=== PATIENT | female | born 1930 | race Caucasian/White ===

== ENCOUNTER → 2016-09-26 | Outpatient (CLI) | payer OTHER, BC ==
[~2016-09-26] MED LIST: ACET325T96 PO; AGG PO; ALBU1NEB10 INH; AMIO200T7 PO; DOCU-94 PO; LEVO1TAB35 PO; METH-589 PO; MIRT1TAB27 PO; NUTR-977 PO; POTA10TA32 PO; POTA20SO2 PO; RMRS/15 PO; SENN8.6T9 PO; SRQ25 PO; [UNRECOGNIZED DRUG - CODE] PO; [UNRECOGNIZED DRUG - CODE] PO
== END ==
LOC: C.LABFOXAC 08:12
PROVIDERS: ATTEND Internal Medicine
DX: E05.90 Thyrotoxicosis, unspecified without thyrotoxic crisis or storm (principal)

== ENCOUNTER → 2016-10-25 | Outpatient (CLI) | payer OTHER, BC ==
[2016-10-25 08:53] LABS: BASO % 0.4 %; BASO ABS # 0.03 K/uL (0-0.2); COMPLETE YES; EOS % 2.9 %; HEMATOCRIT 38.2 % (37-47); IG% 0.4 %; LYMPH % 42.2 %; MEAN CELL VOLUME 98.7 fL (80-100); MEAN CORPUSCULAR HEMOGLOBIN 31.5 pg (25-34); MEAN CORPUSCULAR HGB CONC 31.9 g/dl (32-36); MEAN PLATELET VOLUME 10.1 fL (7.4-10.4); MONO % 8.7 %; NEUT % 45.4 %; PLATELET COUNT 227 K/uL (130-400); RED BLOOD COUNT 3.87 M/uL (4.2-5.4); WHITE BLOOD COUNT 8.06 K/uL (4.8-10.8)
== END ==
LOC: C.LABFOXAC 08:38
PROVIDERS: ATTEND Internal Medicine
DX: Z51.81 Encounter for therapeutic drug level monitoring (principal)

== ENCOUNTER → 2016-11-29 | Outpatient (CLI) | payer OTHER, BC ==
[~2016-11-29] MED LIST changes: +CRD200 PO; +LVNIS40 SQ; +MRLP17 PO; +RXC5 PO
[2016-11-29 09:24] LABS: BASO % 0.3 %; BASO ABS # 0.02 K/uL (0-0.2); COMPLETE YES; EOS % 3.8 %; HEMATOCRIT 41.5 % (37-47); IG% 0.3 %; LYMPH % 34.6 %; LYMPH ABS # 2.36 K/uL (1.2-3.4); MEAN CELL VOLUME 96.1 fL (80-100); MEAN CORPUSCULAR HEMOGLOBIN 31.7 pg (25-34); MEAN PLATELET VOLUME 10.7 fL (7.4-10.4); MONO % 9.4 %; NEUT % 51.6 %; PLATELET COUNT 197 K/uL (130-400); RED BLOOD COUNT 4.32 M/uL (4.2-5.4); WHITE BLOOD COUNT 6.82 K/uL (4.8-10.8)
[2016-11-29 09:45] LABS: THYROID STIMULATING HORMONE 0.024 uIu/ml (0.300-4.500)
== END | disposition home or self-care (01) ==
LOC: C.LABFOXAC 09:09
PROVIDERS: ATTEND Internal Medicine
DX: Z51.81 Encounter for therapeutic drug level monitoring (principal); E03.9 Hypothyroidism, unspecified

== ENCOUNTER → 2016-12-26 | Outpatient (CLI) | payer OTHER, BC ==
[2016-12-26 08:24] LABS: BASO % 0.3 %; BASO ABS # 0.02 K/uL (0-0.2); COMPLETE YES; EOS % 3.8 %; IG% 0.4 %; LYMPH % 42.7 %; LYMPH ABS # 3.28 K/uL (1.2-3.4); MEAN CELL VOLUME 98.5 fL (80-100); MEAN CORPUSCULAR HEMOGLOBIN 30.3 pg (25-34); MEAN CORPUSCULAR HGB CONC 30.8 g/dl (32-36); MEAN PLATELET VOLUME 9.9 fL (7.4-10.4); MONO % 8.1 %; NEUT % 44.7 %; PLATELET COUNT 246 K/uL (130-400); RED BLOOD COUNT 3.96 M/uL (4.2-5.4); WHITE BLOOD COUNT 7.69 K/uL (4.8-10.8)
== END | disposition home or self-care (01) ==
LOC: C.LABFOXAC 07:56
PROVIDERS: ATTEND Internal Medicine
DX: Z51.81 Encounter for therapeutic drug level monitoring (principal)

== ENCOUNTER → 2017-01-09 | Outpatient (CLI) | payer OTHER, BC ==
[2017-01-09 10:12] LABS: ESTIMATED AVERAGE GLUCOSE 126 mg/dl; HA1C FLAG Normal (Normal)
== END | disposition home or self-care (01) ==
LOC: C.LABFOXAC 08:19
PROVIDERS: ATTEND Internal Medicine
DX: E11.9 Type 2 diabetes mellitus without complications (principal)

== ENCOUNTER → 2017-02-28 | Outpatient (CLI) | payer OTHER, BC ==
[~2017-02-28] MED LIST changes: -CRD200 PO; -LVNIS40 SQ; -MRLP17 PO; -RXC5 PO
[2017-02-28 09:29] LABS: T3 TOTAL 0.72 ng/ml (0.60-1.81)
[2017-02-28 09:31] LABS: THYROID STIMULATING HORMONE 1.05 uIu/ml (0.300-4.500)
--- NOTE | 2017-03-08 07:50 | CODING QUERY NO DIAGNOSIS ---
TREATMENT RENDERED WITHOUT A DIAGNOSIS 29 To promote full compliance with coding requirements relating to patient care, physician participation is requested in all cases of manager ambulatory uncertainty. Please assist us with providing a diagnosis/symptom for the test(s) below: A diagnosis/symptom was not documented on your Order. A valid diagnosis/symptom is required to bill all insurances. Please remember that we are unable to code a diagnosis of rule out, probable, possible, questionable, or suspected. DOS 02/28/17 Tests that require a diagnosis: * T3 DIAGNOSIS: * T4 DIAGNOSIS: * TSH DIAGNOSIS: * T3 & T4 FREE DIAGNOSIS: Provider Signature: Date: Thank you Angela Fernandez [facility] Information Management Once completed, please kindly fax back to [phone] For questions please call [phone]
== END ==
LOC: C.LABFOXAC 08:29
PROVIDERS: ATTEND Internal Medicine
DX: E03.9 Hypothyroidism, unspecified (principal)

== ENCOUNTER 2017-05-07 17:44 | Emergency (ER) | payer OTHER, BC ==
[~2017-05-07] VITALS: Ht 160 cm; Wt 77.7 kg
[~2017-05-07 17:44] MED LIST changes: -LEVO1TAB35 PO; -MIRT1TAB27 PO; -POTA20SO2 PO; -SRQ25 PO
[2017-05-07 18:06] VITALS: TEMP 37; Ht 160 cm; Wt 77.7 kg
[2017-05-07] MEDS ORDERED: POTA20SO2 PO (18:08)
[2017-05-07] MEDS ORDERED: SRQ25 PO (18:08)
[2017-05-07] MEDS ORDERED: MIRT1TAB27 PO (18:08)
[2017-05-07 18:50] LABS: BASO % 0.4 %; BASO ABS # 0.03 K/uL (0-0.2); COMPLETE YES; HEMATOCRIT 42.5 % (37-47); IG% 0.4 %; LYMPH % 35.5 %; LYMPH ABS # 2.64 K/uL (1.2-3.4); MEAN CELL VOLUME 99.3 fL (80-100); MEAN CORPUSCULAR HEMOGLOBIN 32.9 pg (25-34); MEAN CORPUSCULAR HGB CONC 33.2 g/dl (32-36); MEAN PLATELET VOLUME 9.4 fL (7.4-10.4); MONO % 7.4 %; NEUT % 53.3 %; PLATELET COUNT 235 K/uL (130-400); RED BLOOD COUNT 4.28 M/uL (4.2-5.4); WHITE BLOOD COUNT 7.43 K/uL (4.8-10.8)
[2017-05-07 18:58] LABS: PROTHROMBIN TIME (PATIENT) 10.4 SECONDS (9.0-12.0)
[2017-05-07 19:08] LABS: ALT/SGPT 15 U/L (12-78); BLOOD UREA NITROGEN 13 mg/dl (7-18); BUN/CREATININE RATIO 16.3 (10-20); CARBON DIOXIDE 31 mmol/L (21-32); CHLORIDE 106 mmol/L (98-107); CREATININE 0.82 mg/dl (0.60-1.20); GLUCOSE 93 mg/dl (70-99); POTASSIUM 4.1 mmol/L (3.5-5.1); SODIUM 141 mmol/L (136-145)
--- NOTE | 2017-05-07 19:10 | DIAGNOSTIC IMAGING REPORT ---
CHEST ONE VIEW PORTABLE CLINICAL HISTORY: Altered mental status. COMPARISON STUDY: Chest radiograph August 10, 2016. FINDINGS: No pneumothorax or pleural effusion is present. Apparent hazy left basilar opacity is probably artifactual. Mild right lower lung opacity likely reflects atelectasis. No findings are noted to suggest pulmonary edema. Mild interstitial thickening is unchanged. IMPRESSION: 1. No acute cardiopulmonary findings. 2. Hazy left basilar opacity. While indeterminate, this is likely artifactual. Electronically signed by: Jaiden Teixeira M.D. 05/07/2017 7:08 PM Dictated Date/Time: 05/07/2017 7:02 PM
[2017-05-07 19:13] LABS: ALKALINE PHOSPHATASE 98 U/L (45-117); AST/SGOT 13 U/L (15-37)
--- NOTE | 2017-05-07 19:16 | DIAGNOSTIC IMAGING REPORT ---
HEAD CT NONCONTRAST CT DOSE: 1228.53 mGy.cm HISTORY: Altered mental status. TECHNIQUE: Multiaxial CT images of the head were performed without the use of intravenous contrast. Automated exposure control was utilized for this study. A dose lowering technique was utilized adhering to the principles of ALARA. Comparison: Head CT 08/10/2016. Findings: The paranasal sinuses and mastoid air cells are clear. The calvarium and skull base are intact. There is no mass, hematoma, midline shift, acute infarct. White matter hypodensity is nonspecific but suggestive of microvascular ischemic change. The ventricles and sulci demonstrate mild age-related involutional changes. Impression: No significant change compared to the prior study. No acute intracranial abnormality. Electronically signed by: Shekhar Olson M.D. 05/07/2017 7:15 PM Dictated Date/Time: 05/07/2017 7:08 PM
[2017-05-07 19:20] LABS: URINE APPEARANCE CLOUDY (CLEAR); URINE BILIRUBIN NEG (NEG); URINE COLOR YELLOW; URINE EPITHELIAL CELL AUTO >30 /lpf (0-5); URINE NITRITE NEG (NEG); URINE PH 6.5 (4.5-7.5); URINE SPECIFIC GRAVITY 1.006 (1.000-1.030); UROBILINOGEN NEG (NEG); ZZURINE CULT IF INDIC CATH YES
[2017-05-07 19:28] LABS: MANUAL MICROSCOPIC REQUIRED? NO; REVIEW REQ? YES
[2017-05-07] MEDS ORDERED: LEVO1TAB35 PO (19:55)
[2017-05-07] MEDS ORDERED: LEVOFLOXACIN 250 MG TAB PO ONE ×2 (20:00→21:45)
[2017-05-07] MEDS ORDERED: LEVAQUIN 750MG / 150ML D5W IV STA (20:32)
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
[2017-05-07 22:09] VITALS: O2SAT 91
[2017-05-07 22:31] VITALS: BP 111/63
[2017-05-07 22:39] VITALS: PULSE 54
--- NOTE | 2017-05-09 13:00 | Pharmacy Progress Note ---
ED Pharmacist Culture FollowUp Date of Service: May 09, 2017. Patient was sent back to skilled nursing with a prescription for levofloxacin 750mg q 48 hours (10 days total), which should cover the E. Coli growing from the patient's urine culture.
== END 2017-05-07 22:55 | disposition home or self-care (01) ==
LOC: EDBD 17:44 → C.EDA 17:46
DX: N30.01 Acute cystitis with hematuria (principal); R55 Syncope and collapse

== ENCOUNTER → 2017-06-10 | Outpatient (CLI) | payer OTHER, BC ==
[~2017-06-10] MED LIST changes: +LEVO1TAB35 PO; +MIRT1TAB27 PO; -POTA10TA32 PO; +POTA20SO2 PO; -RMRS/15 PO; +SRQ25 PO
[2017-06-10 08:14] LABS: BASO % 0.4 %; BASO ABS # 0.03 K/uL (0-0.2); COMPLETE YES; EOS % 3.3 %; HEMATOCRIT 38.6 % (37-47); IG% 0.4 %; LYMPH % 39.8 %; LYMPH ABS # 2.89 K/uL (1.2-3.4); MEAN CELL VOLUME 100.3 fL (80-100); MEAN CORPUSCULAR HEMOGLOBIN 32.5 pg (25-34); MEAN CORPUSCULAR HGB CONC 32.4 g/dl (32-36); MEAN PLATELET VOLUME 9.9 fL (7.4-10.4); NEUT % 48.1 %; PLATELET COUNT 213 K/uL (130-400); RED BLOOD COUNT 3.85 M/uL (4.2-5.4); WHITE BLOOD COUNT 7.26 K/uL (4.8-10.8)
== END | disposition home or self-care (01) ==
LOC: C.LABFOXAC 07:50
PROVIDERS: ATTEND Internal Medicine
DX: E11.9 Type 2 diabetes mellitus without complications (principal); I47.1 Supraventricular tachycardia

== ENCOUNTER 2017-06-30 22:50 | Inpatient (IN) | payer OTHER, BC ==
[2017-06-30] MEDS ORDERED: HYDROmorphone INJ 0.5 MG/0.5 ML SYR IV PRN (23:00)
[2017-06-30 23:31] LABS: BASO % 0.2 %; BASO ABS # 0.02 K/uL (0-0.2); COMPLETE YES; IG% 0.4 %; LYMPH % 22.6 %; LYMPH ABS # 2.54 K/uL (1.2-3.4); MEAN CELL VOLUME 101.9 fL (80-100); MEAN CORPUSCULAR HEMOGLOBIN 31.7 pg (25-34); MEAN CORPUSCULAR HGB CONC 31.1 g/dl (32-36); MEAN PLATELET VOLUME 9.6 fL (7.4-10.4); MONO % 6.8 %; PLATELET COUNT 237 K/uL (130-400); RED BLOOD COUNT 4.32 M/uL (4.2-5.4); WHITE BLOOD COUNT 11.23 K/uL (4.8-10.8)
[2017-06-30 23:42] LABS: PROTHROMBIN TIME (PATIENT) 10.8 SECONDS (9.0-12.0)
[2017-06-30 23:47] LABS: BLOOD UREA NITROGEN 16 mg/dl (7-18); BUN/CREATININE RATIO 15.7 (10-20); CARBON DIOXIDE 31 mmol/L (21-32); CHLORIDE 104 mmol/L (98-107); CREATININE 1.05 mg/dl (0.60-1.20); GLUCOSE 139 mg/dl (70-99); POTASSIUM 4.1 mmol/L (3.5-5.1); SODIUM 143 mmol/L (136-145)
[2017-07-01] VITALS (8 sets, daily range): BP systolic 102–144; BP diastolic 63–78; PULSE 58–108; TEMP 36.2–37.3; O2SAT 92–99
--- NOTE | 2017-07-01 00:23 | History and Physical ---
History & Physical Date & Time of Service: Jul 01, 2017 at 00:23 Chief Complaint: Fall, Femur Fx Primary Care Physician: Lester Lemos History of Present Illness Source: patient, hospital records, skilled nursing The patient is an 87-year-old female resident of [facility], who presents to the emergency department after a sudden fall onto her left leg, with development of acute left leg pain prior to arrival. The patient denies hitting her head, but her history of present illness is limited secondary to dementia Past Medical/Surgical History Medical Problems: (1) Ambulatory dysfunction Status: Chronic (2) Hypercholesteremia Status: Chronic Family History Noncontributory secondary to age Social History Smoking Status: Never Smoker Smokeless Tobacco Use: No Alcohol Use: none Drug Use: none Marital Status: Housing status: skilled nursing Occupational Status: retired Immunizations History of Influenza Vaccine: Unknown History of Tetanus Vaccine?: Unknown History of Pneumococcal: Unknown History of Hepatitis B Vaccine: Unknown Multi-Drug Resistant Organisms History of MDRO: No Allergies Coded Allergies: Amoxicillin (Unverified Allergy, Unknown, ., 07/01/17) Clavulanic Acid (Unverified Allergy, Unknown, ., 07/01/17) Home Medications Scheduled Amiodarone Hcl (Pacerone), 100 MG PO QAM Cholecalciferol (Just D), 5 ML PO QAM Dipyridamole/Aspirin (Aggrenox 25-200 mg), 1 CAP PO Q12 Docusate Sodium (Colace), 100 MG PO QAM Methimazole (Methimazole ), 5 MG PO BID Mirtazapine (Mirtazapine), 7.5 MG PO HS Potassium Chloride (Potassium Chloride), 15 ML PO QAM Sennosides (Senexon), 8.6 MG PO BID Sertraline Hcl (Sertraline Hcl), 3.75 ML PO DAILY Scheduled PRN Albuterol Sulf (Albuterol Sulfate 0.083% For Inh), 3 ML INH Q4 PRN for SOB/ Wheezing Review of Systems Her review of systems is limited secondary to dementia and is as noted above. Physical Exam Vital Signs Date Time Temp Pulse Resp B/P (MAP) Pulse Ox O2 Delivery O2 Flow Rate FiO2 07/01/17 00:16 55 07/01/17 00:16 55 06/30/17 23:07 36.7 58 17 135/75 90 Room Air The patient is awake, well-developed and adequately nourished, alert but disoriented, normocephalic and atraumatic, lying in bed and in no acute distress while lying still. HEENT--PERRL, EOMI, mucous membranes and oropharynx dry. Neck--supple, no JVD or bruits, thyroid normal, trachea midline, no adenopathy. Heart--normal S1 and S2, no extra beats, no murmurs, rubs or gallops. Lungs--clear bilaterally with good air movement, no respiratory distress, no accessory muscle use. Abdomen--normal bowel sounds and soft, nontender and nondistended, no hernias or masses, no organomegaly. Extremities--no cyanosis, clubbing or edema. There are good distal pulses b/l. Dermatologic--normal skin turgor, normal color, warm and dry, no abnormal lymph nodes, no rash. Neurologic--cranial nerves II through XII grossly intact. Rheumatologic--disfigurement and discomfort over mid left femoral shaft area Psychiatric--normal affect. Diagnostics Laboratory Results Results Past 24 Hours Test 06/30/17 22:55 06/30/17 23:21 Range/Units White Blood Count 11.23 4.8-10.8 K/uL Red Blood Count 4.32 4.2-5.4 M/uL Hemoglobin 13.7 12.0-16.0 g/dL Hematocrit 44.0 37-47 % Mean Corpuscular Volume 101.9 80-100 fL Mean Corpuscular Hemoglobin 31.7 25-34 pg Mean Corpuscular Hemoglobin Concent 31.1 32-36 g/dl Platelet Count 237 130-400 K/uL Mean Platelet Volume 9.6 7.4-10.4 fL Neutrophils (%) (Auto) 68.0 % Lymphocytes (%) (Auto) 22.6 % Monocytes (%) (Auto) 6.8 % Eosinophils (%) (Auto) 2.0 % Basophils (%) (Auto) 0.2 % Neutrophils # (Auto) 7.64 1.4-6.5 K/uL Lymphocytes # (Auto) 2.54 1.2-3.4 K/uL Monocytes # (Auto) 0.76 0.11-0.59 K/uL Eosinophils # (Auto) 0.23 0-0.5 K/uL Basophils # (Auto) 0.02 0-0.2 K/uL RDW Standard Deviation 52.1 36.4-46.3 fL RDW Coefficient of Variation 13.8 11.5-14.5 % Immature Granulocyte % (Auto) 0.4 % Immature Granulocyte # (Auto) 0.04 0.00-0.02 K/uL Prothrombin Time 10.8 9.0-12.0 SECONDS Prothromb Time International Ratio 1.0 0.9-1.1 Activated Partial Thromboplast Time 25.2 21.0-31.0 SECONDS Partial Thromboplastin Ratio 1.0 Sodium Level 143 136-145 mmol/L Potassium Level 4.1 3.5-5.1 mmol/L Chloride Level 104 98-107 mmol/L Carbon Dioxide Level 31 21-32 mmol/L Anion Gap 8.0 3-11 mmol/L Blood Urea Nitrogen 16 7-18 mg/dl Creatinine 1.05 0.60-1.20 mg/dl Estimated GFR () 54.9 Estimated GFR (Non- 47.4 BUN/Creatinine Ratio 15.7 10-20 Random Glucose 139 70-99 mg/dl Calcium Level 9.0 8.5-10.1 mg/dl EKG EKG shows sinus bradycardia at 55 bpm, first-degree heart block, no significant change compared to April 2017 Impression Assessment and Plan Left femoral shaft closed fracture-- The patient will be admitted to the medical surgical floor. Nothing by mouth except essential medications after midnight for possible surgery. Morphine sulfate 2-4 mg IV every 2 hours when necessary moderate to severe pain. Consults orthopedics. Cardiac dysrhythmia-- Continue amiodarone 100 mg by mouth every morning. Hold Aggrenox and potassium chloride. Hyperthyroidism-- Continue methimazole 5 mg by mouth twice a day. Depression and insomnia-- Hold mirtazapine and sertraline. Level of Care Med/Surg Resuscitation Status FULL RESUSCITATION VTE Prophylaxis VTE Risk Assessment Done? Y/N: Yes Risk Level: High Given or contraindicated: SCD's Social Service Consult Lives in [place]
[2017-07-01] MEDS ORDERED: ONDANSETRON INJ 2 MG/ML 2 ML VIAL IV PRN (00:30)
[2017-07-01] MEDS ORDERED: ACETAMINOPHEN IV 100 ML IV PRN (00:30)
[2017-07-01] MEDS ORDERED: FAMOTIDINE IV INJ 20 MG in DEXTROSE 5% 100ML 100 ML IV SCH (00:30)
[2017-07-01] MEDS ORDERED: MoRPHine SULFATE 2 MG/ML CARP IV PRN (00:30)
[2017-07-01] MEDS ORDERED: ACETAMINOPHEN 325 MG TAB PO PRN (00:30)
--- NOTE | 2017-07-01 01:13 | EMERGENCY ROOM VISIT NOTE ---
History Report prepared by Ember: Shaheed Schultz Under the Supervision of: Dr. Srinath Mckeon D.O. First contact with patient: 22:52 Stated Complaint: FALL, FEMUR FX History of Present Illness The patient is an 87 year old female who presents to the Emergency Room with complaints of a sudden fall occurring prior to arrival. Per the EMS, the patient fell on her left leg, and she is having left leg pain. The patient states that she did not hit her head. The history is limited secondary to dementia. Source of History: patient, EMS History Limited By: dementia Onset: prior to arrival Position: other (global) Quality: other (fall) Timing: other (sudden) Note: Associated symptoms: Left leg pain Review of Systems HPI is limited secondary to dementia Past Medical & Surgical Medical Problems: (1) Ambulatory dysfunction (2) Closed left femoral fracture (3) Hypercholesteremia Family History Noncontributory secondary to age Social History Smoking Status: Unknown if Ever Smoked Marital Status: Housing Status: [facility] Occupation Status: retired Current/Historical Medications Scheduled Amiodarone Hcl (Pacerone), 100 MG PO QAM Cholecalciferol (Just D), 5 ML PO QAM Dipyridamole/Aspirin (Aggrenox 25-200 mg), 1 CAP PO Q12 Docusate Sodium (Colace), 100 MG PO QAM Methimazole (Methimazole ), 5 MG PO BID Mirtazapine (Mirtazapine), 7.5 MG PO HS Potassium Chloride (Potassium Chloride), 15 ML PO QAM Sennosides (Senexon), 8.6 MG PO BID Sertraline Hcl (Sertraline Hcl), 3.75 ML PO DAILY Scheduled PRN Albuterol Sulf (Albuterol Sulfate 0.083% For Inh), 3 ML INH Q4 PRN for SOB/ Wheezing Allergies Coded Allergies: Amoxicillin (Unverified Allergy, Unknown, ., 07/01/17) Clavulanic Acid (Unverified Allergy, Unknown, ., 07/01/17) Physical Exam Vital Signs Date Time Temp Pulse Resp B/P (MAP) Pulse Ox O2 Delivery O2 Flow Rate FiO2 07/01/17 00:16 55 07/01/17 00:16 55 06/30/17 23:07 36.7 58 17 135/75 90 Room Air Physical Exam CONSTITUTIONAL/VITAL SIGNS: Reviewed / noted above. GENERAL: Non-toxic in appearance. INTEGUMENTARY: Warm, dry, and [place]. HEAD: Normocephalic. EYES: without scleral icterus or trauma. ENT/OROPHARYNX: clear and moist. LYMPHADENOPATHY/NECK: Is supple without lymphadenopathy or meningismus. RESPIRATORY: Lungs clear and equal. CARDIOVASCULAR: Regular rate and rhythm. GI/ABDOMEN: Soft and nontender. No organomegaly or pulsatile mass. No rebound or guarding. Normal bowel sounds. EXTREMITIES: Deformity to the left femur. Warm and well perfused. BACK: No CVA tenderness. NEUROLOGICAL: Intact without focal deficits. PSYCHIATRIC: normal affect. MUSCULOSKELETAL: Normally developed with good muscle tone. Medical Decision & Procedures ER Provider Diagnostic Interpretation: X ray results and stated below per my interpretation. Chest X-ray: No acute disease, no pneumothorax, no pneumonia. Left Femur X-ray: Comminuted spiral fracture of the left midshaft femur with displacement and angulation. Pelvis X-ray: No fracture or dislocation. Radiology results as stated below per my review and radiologist interpretation: CT HEAD: Comparison 05/07 No ICH, mass effect, or skull fracture. Radiologist: Manish Ross MD Laboratory Results 06/30/17 23:21 Red Blood Count 4.32, Mean Corpuscular Volume 101.9, Mean Corpuscular Hemoglobin 31.7, Mean Corpuscular Hemoglobin Concent 31.1, Mean Platelet Volume 9.6, Neutrophils (%) (Auto) 68.0, Lymphocytes (%) (Auto) 22.6, Monocytes (%) ( Auto) 6.8, Eosinophils (%) (Auto) 2.0, Basophils (%) (Auto) 0.2, Neutrophils # ( Auto) 7.64, Lymphocytes # (Auto) 2.54, Monocytes # (Auto) 0.76, Eosinophils # ( Auto) 0.23, Basophils # (Auto) 0.02 06/30/17 23:21 Test 06/30/17 22:55 06/30/17 23:21 White Blood Count 11.23 K/uL (4.8-10.8) Red Blood Count 4.32 M/uL (4.2-5.4) Hemoglobin 13.7 g/dL (12.0-16.0) Hematocrit 44.0 % (37-47) Mean Corpuscular Volume 101.9 fL (80-100) Mean Corpuscular Hemoglobin 31.7 pg (25-34) Mean Corpuscular Hemoglobin Concent 31.1 g/dl (32-36) Platelet Count 237 K/uL (130-400) Mean Platelet Volume 9.6 fL (7.4-10.4) Neutrophils (%) (Auto) 68.0 % Lymphocytes (%) (Auto) 22.6 % Monocytes (%) (Auto) 6.8 % Eosinophils (%) (Auto) 2.0 % Basophils (%) (Auto) 0.2 % Neutrophils # (Auto) 7.64 K/uL (1.4-6.5) Lymphocytes # (Auto) 2.54 K/uL (1.2-3.4) Monocytes # (Auto) 0.76 K/uL (0.11-0.59) Eosinophils # (Auto) 0.23 K/uL (0-0.5) Basophils # (Auto) 0.02 K/uL (0-0.2) RDW Standard Deviation 52.1 fL (36.4-46.3) RDW Coefficient of Variation 13.8 % (11.5-14.5) Immature Granulocyte % (Auto) 0.4 % Immature Granulocyte # (Auto) 0.04 K/uL (0.00-0.02) Prothrombin Time 10.8 SECONDS (9.0-12.0) Prothromb Time International Ratio 1.0 (0.9-1.1) Activated Partial Thromboplast Time 25.2 SECONDS (21.0-31.0) Partial Thromboplastin Ratio 1.0 Anion Gap 8.0 mmol/L (3-11) Estimated GFR () 54.9 Estimated GFR (Non- 47.4 BUN/Creatinine Ratio 15.7 (10-20) Calcium Level 9.0 mg/dl (8.5-10.1) Laboratory results as stated above per my review. ECG Indication: other (fall) Rate (beats per minute): 55 Rhythm: sinus bradycardia Findings: 1st degree AV block, no ectopy, other (No acute injury) ED Course 225: Previous medical records were reviewed. The patient was evaluated in room B12. A complete history and physical examination was performed. 2300: Dilaudid 0.25mg IV 0002: Discussed the patient's case with Dr. Shi, [facility]. The patient will be evaluated for further treatment and disposition. 0008: I reevaluated the patient, and she was asleep. Medical Decision Differential includes close head injury, intracranial bleed, facial trauma, cervical spine trauma, chest and thoracic trauma, abdominal and intra-abdominal trauma, spine neurologic trauma, extremity trauma. . This is an 79-year-old female who presents to the ED after being found on the floor next to her bed. The patient has history of dementia and is a poor historian. She cannot recall what happened. The patient has an obvious deformity to the left leg. X-ray reveals a comminuted femur fracture. Chest x- ray was negative for acute disease. CT scan of the brain was negative for acute disease. Blood work was unremarkable. Rankin catheter was placed. The patient did receive pain medication by EMS. She appears to be comfortable at this time. The patient be seen by the hospitalist with orthopedic referral. Medication Reconcilliation Current Medication List: was personally reviewed by me Blood Pressure Screening Patient's blood pressure: Normal blood pressure Consults Time Called: 1 Consulting Physician: Dr. Shi Returned Call: 0002 Discussed the patient's case with Dr. Shi. The patient will be evaluated for further treatment and disposition. Impression Primary Impression: Femur fracture, left Scribe Attestation The scribe's documentation has been prepared under my direction and personally reviewed by me in its entirety. I confirm that the note above accurately reflects all work, treatment, procedures, and medical decision making performed by me. Departure Information Dispostion Being Evaluated By Hospitalist Referrals Lester Lemos (PCP)
[2017-07-01] MEDS: NSS + 20MEQ KCL 1000ML 1,000 ML IV SCH ×2 (02:32→12:41)
[2017-07-01] MEDS: MoRPHine SULFATE 4 MG/ML 1 ML CARP\\VIAL IV PRN ×3 (04:13→20:13)
[2017-07-01] MEDS ORDERED: FAMOTIDINE IV INJ 20 MG in SYRINGE 3 ML IV SCH (06:00)
--- NOTE | 2017-07-01 06:37 | DIAGNOSTIC IMAGING REPORT ---
HEAD WITHOUT CONTRAST (CT) CLINICAL HISTORY: 87 years-old Female with fall. Acute head injury status post fall TECHNIQUE: Multiple axial CT images of the head were obtained without contrast. A dose lowering technique was utilized adhering to the principles of ALARA. CT DOSE: 614.27 mGy.cm COMPARISON: CT head 05/07/2017. FINDINGS: No acute intracranial hemorrhage, midline shift, mass, large territorial ischemia or abnormal extra-axial collection. Moderate atrophy. Background chronic microvascular ischemic changes are noted. The calvarium is intact. The paranasal sinuses, mastoid air cells, and middle ear cavities are clear. Evidence of prior bilateral cataract repair. IMPRESSION: No acute intracranial abnormality. The above report was generated using voice recognition software. It may contain grammatical, syntax or spelling errors. Electronically signed by: Cholo Anders M.D. 07/01/2017 6:36 AM Dictated Date/Time: 07/01/2017 6:34 AM
--- NOTE | 2017-07-01 06:58 | DIAGNOSTIC IMAGING REPORT ---
L FEMUR 2 VIEWS ROUTINE CLINICAL HISTORY: 87 years-old Female presenting with fall out of bed. TECHNIQUE: Frontal and lateral views of the left femur were obtained. COMPARISON: Correlation made to plain radiographs of the pelvis from 08/10/2016. FINDINGS: Obliquely oriented fracture of the mid left femoral diaphysis with apex medial angulation. The fracture is mildly comminuted with a prominent butterfly fracture fragment laterally at the level of the fracture plane. Underlying osteopenia is present. Over one shaft width posterolateral displacement of the distal fracture fragment. Severe degenerative change of the left hip and left knee joints. Atherosclerosis. IMPRESSION: Mildly comminuted, angulated, and displaced fracture of the mid diaphysis of the left femur as above. Electronically signed by: Agustin Reyes M.D. 07/01/2017 6:57 AM Dictated Date/Time: 07/01/2017 6:53 AM
--- NOTE | 2017-07-01 07:01 | DIAGNOSTIC IMAGING REPORT ---
PELVIS 1 OR 2 VIEW ROUTINE CLINICAL HISTORY: 87 years-old Female presenting with fall. TECHNIQUE: Single frontal view of the pelvis was obtained. COMPARISON: 08/10/2016. FINDINGS: Osteopenia. Severe bilateral degenerative changes of the hip joints with osseous fusion suspected. Mild protrusio acetabuli deformity. The degree of osteopenia makes evaluation for nondisplaced fracture difficult. No convincing evidence of a displaced fracture in the pelvis. Arcuate lines intact. Sacroiliac joints and pubic symphysis congruent. IMPRESSION: Allowing for severe osteopenia, no evidence of displaced fracture of the pelvis. Please see separately dictated radiograph of the left femur. Extensive degenerative changes above. Electronically signed by: Agustin Reyes M.D. 07/01/2017 6:59 AM Dictated Date/Time: 07/01/2017 6:57 AM
--- NOTE | 2017-07-01 07:03 | DIAGNOSTIC IMAGING REPORT ---
CHEST ONE VIEW PORTABLE CLINICAL HISTORY: 87 years-old Female presenting with fall. TECHNIQUE: Portable supine AP view of the chest was obtained. COMPARISON: 05/07/2017. FINDINGS: Atherosclerosis of aortic arch. Cardiac silhouette mildly enlarged, unchanged. Suggestion of indistinct peripheral reticulation, also unchanged from prior. No convincing evidence of a new focal infiltrate. Added density in the retrocardiac region may relate to cardiomegaly. No large effusion or pneumothorax. No displaced rib fracture is apparent. Upper abdomen normal. IMPRESSION: 1. No acute cardiopulmonary disease. 2. Chronic changes and mild cardiomegaly. Electronically signed by: Agustin Reyes M.D. 07/01/2017 7:02 AM Dictated Date/Time: 07/01/2017 7:00 AM
[2017-07-01] MEDS: METHIMAZOLE 5 MG TAB PO SCH ×2 (09:53→20:36)
[2017-07-01] MEDS: AMIODARONE 200 MG TAB PO SCH (09:54)
--- NOTE | 2017-07-01 10:11 | ORTHOPEDIC CONSULTATION ---
DATE OF CONSULTATION: 07/01/2017 CHIEF COMPLAINT: Fall with left leg pain. HISTORY OF PRESENT ILLNESS: The patient is seen in conjunction with Yani Rodriguez. For further details, refer to her dictation. She and I saw and evaluated together and I am in agreement with the plan. The patient is an 87-year-old female who resides at [facility]. She is a poor historian. She is oriented only to person. She denies any significant discomfort at the present time. She does respond to questions appropriately and follow commands. I spoke with Dr. Krueger at [facility]. She carries diagnoses of paroxysmal atrial fibrillation, cerebrovascular disease, type 2 diabetes, last hemoglobin A1c was 6 in December. She is off medications. She also has dementia. She suffers from major depressive disorder, hyperlipidemia, osteoporosis, back pain. On examination, her head is atraumatic. She can move her neck to the left and right without difficulty. She can reach her arms up above her head without difficulty. There is no bruising, tenderness or swelling of the upper extremities. The right lower extremity is held in a fixed position. She can wiggle her toes and move her ankle slightly, but she does not bend her knee or move her right hip. I can flex the right hip about 10 degrees. I can dorsiflex the ankle close to neutral. 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 I might be able to bend the right knee 10 degrees. She does wiggle her toes and move her ankle up and down, but does not have full movement. Her hip has essentially no motion on the right. There is no tenderness on the right. On the left, she has tenderness and a mild deformity of the left thigh. There is no break in the skin. The left knee is mildly swollen. The remainder of the left lower extremity is nontender. She does not have any palpable pedal pulses, but both of her feet are warm and capillary refill is less than 2 seconds. She does wiggle her toes slightly on the left and can move her ankle up and down slightly, but that is it. I cannot assess hip or knee motion. Her radiographs show a comminuted fracture of the femur with osteoporosis. 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 IMPRESSION: Dementia, type 2 diabetes, paroxysmal atrial fibrillation, cerebrovascular disease, pathological fracture of the left femur secondary to osteoporosis, questionable ambulatory status. PLAN: Findings are discussed with the patient's next of kin who is Bolivar Moss, phone number is [phone], cellphone number [phone]. He and I had a discussion about the patient's diagnosis. We reviewed the treatment options and the risks and benefits associated with operative and nonoperative management. If she is demented and nonambulatory, nonoperative management might be a realistic option. Comfort care and hospice are discussed. Surgical intervention has some risks, which we discussed including infection, bleeding, pain, scarring, nerve and blood vessel damage, implant failure, blood clot, embolism, heart attack, stroke, and . Surgery may give her some greater comfort, but I do think she would be able to do much in the way of rehabilitation. Nonoperative management has risks of blood clots, bedsores and pneumonia. She may have increased discomfort with transfers and likely would not have any significant out of bed mobility. Technically, the operation may be a challenge if both her hip and knee are ankylosed. We may not be able to bend her knee to do a retrograde nail. The stiff hip may present a challenge for a troch nail. I discussed these with the patient's nephew. He will discuss with family and get back with me regarding an answer. In the meantime, she is given a diet. She will be n.p.o. after midnight. We have added her on the surgery schedule for tomorrow, DVT prophylaxis with mechanical devices, hold any anticoagulation for the present time. I have recommended a knee immobilizer to be applied to the knee and thigh area for some stability. Check an MRSA nasal swab. Decubitus precautions. The patient would also need to have medical clearance. Her INR is 1.0. Her PRP is within normal limits. White count is 11, likely secondary to stress. Hemoglobin 13, hematocrit 44, platelet count is 237. MRSA nasal swab was negative. MTDD
--- NOTE | 2017-07-01 10:22 | ORTHOPEDIC CONSULTATION ---
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 I might be able to bend the right knee 10 degrees. She does wiggle her toes and move her ankle up and down, but does not have full movement. Her hip has essentially no motion on the right. There is no tenderness on the right. On the left, she has tenderness and a mild deformity of the left thigh. There is no break in the skin. The left knee is mildly swollen. The remainder of the left lower extremity is nontender. She does not have any palpable pedal pulses, but both of her feet are warm and capillary refill is less than 2 seconds. She does wiggle her toes slightly on the left and can move her ankle up and down slightly, but that is it. I cannot assess hip or knee motion. Her radiographs show a comminuted fracture of the femur with osteoporosis. 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 IMPRESSION: Dementia, type 2 diabetes, paroxysmal atrial fibrillation, cerebrovascular disease, pathological fracture of the left femur secondary to osteoporosis, questionable ambulatory status. PLAN: Findings are discussed with the patient's next of kin who is Bolivar Moss, phone number is [phone], cellphone number [phone]. He and I had a discussion about the patient's diagnosis. We reviewed the treatment options and the risks and benefits associated with operative and nonoperative management. If she is demented and nonambulatory, nonoperative management might be a realistic option. Comfort care and hospice are discussed. Surgical intervention has some risks, which we discussed including infection, bleeding, pain, scarring, nerve and blood vessel damage, implant failure, blood clot, embolism, heart attack, stroke, and . Surgery may give her some greater comfort, but I do think she would be able to do much in the way of rehabilitation. Nonoperative management has risks of blood clots, bedsores and pneumonia. She may have increased discomfort with transfers and likely would not have any significant out of bed mobility. Technically, the operation may be a challenge if both her hip and knee are ankylosed. We may not be able to bend her knee to do a retrograde nail. The stiff hip may present a challenge for a troch nail. I discussed these with the patient's nephew. He will discuss with family and get back with me regarding an answer. In the meantime, she is given a diet. She will be n.p.o. after midnight. We have added her on the surgery schedule for tomorrow, DVT prophylaxis with mechanical devices, hold any anticoagulation for the present time. I have recommended a knee immobilizer to be applied to the knee and thigh area for some stability. Check an MRSA nasal swab. Decubitus precautions. The patient would also need to have medical clearance. Her INR is 1.0. Her PRP is within normal limits. White count is 11, likely secondary to stress. Hemoglobin 13, hematocrit 44, platelet count is 237. MRSA nasal swab was negative.
[2017-07-01] MEDS ORDERED: OXYCODONE HCL IR 5 MG TAB (IMMEDIATE RELEASE) PO PRN (12:00)
--- NOTE | 2017-07-01 13:36 | Medical Student: [facility] ---
Med Student History & Physical Date & Time of Service: Jul 01, 2017 at 10:11 Chief Complaint: Closed Left Femoral Fracture Primary Care Physician: Lester Lemos History of Present Illness Source: patient Pt is an 87 yo F who is a resident at [facility] who presents for fall on 06/30. She notes hitting her left leg and denies hitting her head. Currently on morphine 4mg Q2H PRN for pain and describes pain as <5/10 currently. Pmhx significant for paroxysmal superventricular tachycardia dx in 2013 a managed with Amiodarone 100mg, hyperthyroidism managed with methimazole 5 mg BID, dementia and depression and insomnia. Difficult to get story of fall as pt has severe dementia and does not remember falling or hurting her leg. She is currently oriented only to self. Past Medical/Surgical History Medical Problems: (1) Femur fracture, left Status: Acute (2) Syncope Status: Acute (3) UTI (urinary tract infection) Status: Acute Family History Unable to obtain due to pt's mental state. Social History Smoking Status: Unknown if Ever Smoked Smokeless Tobacco Use: No Alcohol Use: none Drug Use: none Marital Status: Housing status: half-way Occupational Status: retired Immunizations History of Influenza Vaccine: Unknown History of Tetanus Vaccine?: Unknown History of Pneumococcal: Unknown History of Hepatitis B Vaccine: Unknown Allergies Coded Allergies: Amoxicillin (Unverified Allergy, Unknown, ., 07/01/17) Clavulanic Acid (Unverified Allergy, Unknown, ., 07/01/17) Medications Albuterol Sulf (Albuterol Sulfate 0.083% For Inh), 3 ML INH Q4 PRN for SOB/ Wheezing Amiodarone Hcl (Pacerone), 100 MG PO QAM Cholecalciferol (Just D), 5 ML PO QAM Dipyridamole/Aspirin (Aggrenox 25-200 mg), 1 CAP PO Q12 Docusate Sodium (Colace), 100 MG PO QAM Methimazole (Methimazole ), 5 MG PO BID Mirtazapine (Mirtazapine), 7.5 MG PO HS Potassium Chloride (Potassium Chloride), 15 ML PO QAM Sennosides (Senexon), 8.6 MG PO BID Sertraline Hcl (Sertraline Hcl), 3.75 ML PO DAILY Review of Systems Difficult to obtain due to pt's mental state. Respiratory: + shortness of breath (Notes mild difficulty breathing) Cardiovascular: No chest pain Psychiatric: + problem reported (Possible hallucinations - pt reported seeing blood on ceiling but might have been noting the texture of the ceiling) Physical Exam Vital Signs (24 Hours) Date Time Temp Pulse Resp B/P (MAP) Pulse Ox O2 Delivery O2 Flow Rate FiO2 07/01/17 09:19 99 Nasal Cannula 2.0 07/01/17 07:50 36.2 73 16 102/63 (76) 99 Nasal Cannula 2.0 07/01/17 07:45 Nasal Cannula 2.0 07/01/17 02:24 Nasal Cannula 07/01/17 02:23 36.3 58 18 144/78 (100) 96 Nasal Cannula 2.0 07/01/17 01:36 60 18 119/72 95 07/01/17 01:20 60 16 96 07/01/17 00:50 60 16 97 07/01/17 00:20 56 14 98 07/01/17 00:16 55 07/01/17 00:16 55 07/01/17 00:11 143/71 06/30/17 23:07 36.7 58 17 135/75 90 Room Air General Appearance: WD/WN, no apparent distress Head: normocephalic, atraumatic Eyes: normal inspection, sclerae normal Respiratory/Chest: no accessory muscle use, + rales (bilateral) Cardiovascular: regular rate, rhythm, no gallop, no murmur Abdomen/GI: normal bowel sounds, soft, + tenderness (Diffuse tenderness to light palpation) Extremities/Musculoskelatal: + pedal edema (+1) Neurologic/Psych: + disoriented (A&Ox1) Skin: normal color, warm/dry Diagnostics Laboratory Results Results Past 24 Hours Test 06/30/17 23:21 Range/Units White Blood Count 11.23 4.8-10.8 K/uL Red Blood Count 4.32 4.2-5.4 M/uL Hemoglobin 13.7 12.0-16.0 g/dL Hematocrit 44.0 37-47 % Mean Corpuscular Volume 101.9 80-100 fL Mean Corpuscular Hemoglobin 31.7 25-34 pg Mean Corpuscular Hemoglobin Concent 31.1 32-36 g/dl Platelet Count 237 130-400 K/uL Mean Platelet Volume 9.6 7.4-10.4 fL Neutrophils (%) (Auto) 68.0 % Lymphocytes (%) (Auto) 22.6 % Monocytes (%) (Auto) 6.8 % Eosinophils (%) (Auto) 2.0 % Basophils (%) (Auto) 0.2 % Neutrophils # (Auto) 7.64 1.4-6.5 K/uL Lymphocytes # (Auto) 2.54 1.2-3.4 K/uL Monocytes # (Auto) 0.76 0.11-0.59 K/uL Eosinophils # (Auto) 0.23 0-0.5 K/uL Basophils # (Auto) 0.02 0-0.2 K/uL RDW Standard Deviation 52.1 36.4-46.3 fL RDW Coefficient of Variation 13.8 11.5-14.5 % Immature Granulocyte % (Auto) 0.4 % Immature Granulocyte # (Auto) 0.04 0.00-0.02 K/uL Prothrombin Time 10.8 9.0-12.0 SECONDS Prothromb Time International Ratio 1.0 0.9-1.1 Activated Partial Thromboplast Time 25.2 21.0-31.0 SECONDS Partial Thromboplastin Ratio 1.0 Sodium Level 143 136-145 mmol/L Potassium Level 4.1 3.5-5.1 mmol/L Chloride Level 104 98-107 mmol/L Carbon Dioxide Level 31 21-32 mmol/L Anion Gap 8.0 3-11 mmol/L Blood Urea Nitrogen 16 7-18 mg/dl Creatinine 1.05 0.60-1.20 mg/dl Estimated GFR () 54.9 Estimated GFR (Non- 47.4 BUN/Creatinine Ratio 15.7 10-20 Random Glucose 139 70-99 mg/dl Calcium Level 9.0 8.5-10.1 mg/dl Microbiology Results 07/01/17 MRSA DNA Surveillance Screen - Final, Complete Specimen Negative for MRSA by DNA Probe Diagnostic Radiology Femur XR: Mildly comminuted, angulated, and displaced fracture of the mid diaphysis of the left femur. Pelvis XR: Allowing for severe osteopenia, no evidence of displaced fracture of the pelvis. Head CT: No acute intracranial abnormality. other (No acute cardiopulmonary disease with chronic changes and mild cardiomegaly.) EKG sinus bradycardia with 1st Degree AV block Impression Assessment and Plan Pt is a 87 yo F who presents for fall on 06/30, denies hitting her head and notes pain on left leg. Femur XR confirm mid diaphyseal fracture of the left femur with pelvis XR and head CT benign. She has medical history significant for cardiac dysarrhythmia, hyperthyroidism, depression and insomnia. She has also new onset mild abdominal tenderness, possibly due to constipation as pt is on opioids for pain management. Pt also has slight edema and SOB while on 2L nasal canula with bilateral rales in lower lobes. This could possibly be due to mild volume overload. SOB could also be due to atelectatic changes as pt has been sedentary. 1. Left mid diaphyseal fracture of femur a. Ortho consulted b. Continue PRN IV morphine and PO oxycodone as needed for pain 2. Cardiac Dysrhythmia - noted both as possible SVT or afib/flutter but no note of anticoagulation a. Continue pt's Amiodarone 100mg 3. Hyperthyroidism a. Continue methimazole 5mg BID 4. Depression and Insomnia a. Hold sertraline and mirtazapine 5. Abdominal tenderness possible constipation a. Monitor bowel movements with goal of 1 bowel movement every other day b. Consider laxative/enema post-surgery if needed 6. Edema and SOB - possibly secondary to volume overload, SOB could also be due to atelectatic changes. a. Lower IVF to 80mg/hr b. Encourage incentive spirometry
--- NOTE | 2017-07-01 15:18 | Anesthesiology Progress Note ---
Pre-OP Anesthesia Assessment Date of Note Jul 01, 2017. Review patient information reviewed, chart reviewed, labs reviewed, acceptable for surgery Notes Elderly female fell at retirement, sustained left femur fracture. Scheduled for ORIF. PMH includes atrial flutter/SVT, hyperthyroidism, hypercholesterolemia, dementia. Pt is awake and disoriented. She has been treated with Aggrenox until admission; this contraindicates use of spinal anesthetic. This was discussed by phone with Eboni Bolivar Isa, who is reportedly pt's next of kin and POA. I explained general anesthesia to him including risks and benefits. He expressed understanding and gave phone consent for Mrs Healy to have general anesthesia.
--- NOTE | 2017-07-01 16:16 | Progress Note ---
Subjective Date of Service: Jul 01, 2017. Subjective this pt is very confused thinks she is here with her mother and not really sure where she is, not aware of her having a broken bone. Problem List Medical Problems: (1) Femur fracture, left Status: Acute (2) Syncope Status: Acute (3) UTI (urinary tract infection) Status: Acute Review of Systems Constitutional: + weakness, + fatigue, No fever, No chills Cardiac: No chest pain Neurologic: + memory loss, + weakness, + balance problems degree of confusion limits the confidence in ROS Objective Vital Signs Date Time Temp Pulse Resp B/P (MAP) Pulse Ox O2 Delivery O2 Flow Rate FiO2 07/01/17 15:49 92 Room Air 07/01/17 15:06 36.5 78 18 117/71 (86) 98 Nasal Cannula 2.0 07/01/17 12:56 36.7 76 18 117/68 (84) 99 Nasal Cannula 2.0 07/01/17 09:19 99 Nasal Cannula 2.0 07/01/17 07:50 36.2 73 16 102/63 (76) 99 Nasal Cannula 2.0 07/01/17 07:45 Nasal Cannula 2.0 07/01/17 02:24 Nasal Cannula 07/01/17 02:23 36.3 58 18 144/78 (100) 96 Nasal Cannula 2.0 07/01/17 01:36 60 18 119/72 95 07/01/17 01:20 60 16 96 07/01/17 00:50 60 16 97 07/01/17 00:20 56 14 98 07/01/17 00:16 55 07/01/17 00:16 55 07/01/17 00:11 143/71 06/30/17 23:07 36.7 58 17 135/75 90 Room Air Physical Exam General Appearance: WD/WN, + mild distress Eyes: PERRL, EOMI Neck: supple, no JVD Respiratory/Chest: chest non-tender, lungs clear, + rales (at bases cw atelectasis) Cardiovascular: regular rate, rhythm, no murmur Abdomen: normal bowel sounds, non tender, soft Extremities: no pedal edema, no calf tenderness Neurologic/Psychiatric: alert, + disoriented Laboratory Results Last 24 Hours Test 06/30/17 23:21 White Blood Count 11.23 K/uL Red Blood Count 4.32 M/uL Hemoglobin 13.7 g/dL Hematocrit 44.0 % Mean Corpuscular Volume 101.9 fL Mean Corpuscular Hemoglobin 31.7 pg Mean Corpuscular Hemoglobin Concent 31.1 g/dl Platelet Count 237 K/uL Mean Platelet Volume 9.6 fL Neutrophils (%) (Auto) 68.0 % Lymphocytes (%) (Auto) 22.6 % Monocytes (%) (Auto) 6.8 % Eosinophils (%) (Auto) 2.0 % Basophils (%) (Auto) 0.2 % Neutrophils # (Auto) 7.64 K/uL Lymphocytes # (Auto) 2.54 K/uL Monocytes # (Auto) 0.76 K/uL Eosinophils # (Auto) 0.23 K/uL Basophils # (Auto) 0.02 K/uL RDW Standard Deviation 52.1 fL RDW Coefficient of Variation 13.8 % Immature Granulocyte % (Auto) 0.4 % Immature Granulocyte # (Auto) 0.04 K/uL Prothrombin Time 10.8 SECONDS Prothromb Time International Ratio 1.0 Activated Partial Thromboplast Time 25.2 SECONDS Partial Thromboplastin Ratio 1.0 Sodium Level 143 mmol/L Potassium Level 4.1 mmol/L Chloride Level 104 mmol/L Carbon Dioxide Level 31 mmol/L Anion Gap 8.0 mmol/L Blood Urea Nitrogen 16 mg/dl Creatinine 1.05 mg/dl Estimated GFR () 54.9 Estimated GFR (Non- 47.4 BUN/Creatinine Ratio 15.7 Random Glucose 139 mg/dl Calcium Level 9.0 mg/dl Assessment and Plan 87 f with acute femur fracture and moderate dementia Left femoral shaft closed fracture--orthopedic surgery in discussion with family regarding surgery or medical management. Morphine sulfate 2-4 mg IV every 2 hours when necessary moderate to severe pain. apply traction Cardiac dysrhythmia--has both SVT and afib/flutter in chart, no previous discussion of AC Continue amiodarone 100 mg by mouth every morning. Hold Aggrenox and potassium chloride. Hyperthyroidism--clinically euthyroid, Continue methimazole 5 mg by mouth twice a day. Depression and insomnia--continue mirtazapine and sertraline. SCD for DVT prevention
[2017-07-02] VITALS (7 sets, daily range): BP systolic 81–140; BP diastolic 56–76; PULSE 80–98; TEMP 36.8–37.2; O2SAT 95–100
[2017-07-02] MEDS: NSS + 20MEQ KCL 1000ML 1,000 ML IV SCH ×2 (00:27→19:42)
[2017-07-02] MEDS ORDERED: CEFAZOLIN SOD 2000MG/10 ML IV PUSH IV SCH (06:00)
[2017-07-02] MEDS ORDERED: BUPIVACAINE 0.5 % 5 MG/1 ML PF 10ML VIAL ONE (07:34)
[2017-07-02 08:49] LABS: BASO % 0.2 %; BASO ABS # 0.02 K/uL (0-0.2); COMPLETE YES; EOS % 0.6 %; HEMATOCRIT 33.3 % (37-47); IG% 0.4 %; LYMPH % 19.4 %; LYMPH ABS # 2.16 K/uL (1.2-3.4); MEAN CELL VOLUME 102.8 fL (80-100); MEAN CORPUSCULAR HEMOGLOBIN 31.5 pg (25-34); MEAN CORPUSCULAR HGB CONC 30.6 g/dl (32-36); MEAN PLATELET VOLUME 9.3 fL (7.4-10.4); MONO % 11.4 %; PLATELET COUNT 181 K/uL (130-400); RED BLOOD COUNT 3.24 M/uL (4.2-5.4); WHITE BLOOD COUNT 11.14 K/uL (4.8-10.8)
[2017-07-02] MEDS: METHIMAZOLE 5 MG TAB PO SCH ×2 (09:00→20:28)
[2017-07-02] MEDS: AMIODARONE 200 MG TAB PO SCH (09:00)
--- NOTE | 2017-07-02 09:02 | Clinical Documentation Query ---
CLINICAL DOCUMENTATION QUERY Dr. PRESTON, In your clinical opinion is this patient being managed for: ( x ) Acute blood loss anemia ( ) Not Agree ( ) Other explanation of clinical findings (Please Explain) ( ) Unable to determine (Please Define) ( ) Need to Discuss The medical record reflects the following clinical findings, treatment, and risk factors. Clinical Indicators: 87 yo female presenting with a L femoral shaft fracture. Initial Hgb 13.7/Hct 44 which has trended down to 10.2/33.3. Treatment: daily CBC's Risk Factors: age, fall with femur fracture Please clarify and document your clinical opinion in the progress notes and discharge summary. Terms such as "probable", "suspected", "likely", "questionable", "possible", or "still to be ruled out" are acceptable. IF IN AGREEMENT, YOU MUST DOCUMENT ABOVE DIAGNOSTIC STATEMENT IN DAILY PROGRESS NOTES AND DISCHARGE SUMMARY. This document is not part of the patient's record. Thank You, Coni Finley, YUKI [phone]
[2017-07-02 09:05] LABS: BLOOD UREA NITROGEN 12 mg/dl (7-18); BUN/CREATININE RATIO 17.5 (10-20); CALCIUM 8.2 mg/dl (8.5-10.1); CARBON DIOXIDE 28 mmol/L (21-32); CHLORIDE 107 mmol/L (98-107); CREATININE 0.68 mg/dl (0.60-1.20); GLUCOSE 122 mg/dl (70-99); MAGNESIUM 2.2 mg/dl (1.8-2.4); POTASSIUM 4.3 mmol/L (3.5-5.1); SODIUM 141 mmol/L (136-145)
--- NOTE | 2017-07-02 09:46 | Progress Note ---
Orthopedic SOAP Note Subjective Date of Service: Jul 02, 2017. Denies: feeling well, complaints, chest pain, SOB, nausea / vomiting, light headedness, calf pain Additional Notes: The patient responds occasionally when asked questions regarding review of systems. After asking multiple times and prompting the patient to respond to questions, she overall denies any headache, chest pain, calf pain, numbness, tingling, shortness of breath, fevers, chills, night sweats. She did respond multiple times that she was not in pain. Problem List Medical Problems: (1) Femur fracture, left Status: Acute (2) Syncope Status: Acute (3) UTI (urinary tract infection) Status: Acute Objective calves soft nontender, N/V intact (reports being able to feel her toes but would not move them when prompted), capillary refill less than 2 sec. the patient was resting comfortably upon entering the room. She was in no acute distress. Did not appear to be in any type of significant discomfort. Was somewhat bothered by me asking her questions and examining her left lower extremity, but overall was fairly compliant and responded after repeating questions. Traction currently utilized left lower extremity Date Time Temp Pulse Resp B/P (MAP) Pulse Ox O2 Delivery O2 Flow Rate FiO2 07/01/17 23:45 37.3 108 18 122/67 (85) 96 Oxymask 2.0 07/01/17 23:45 Oxymask 2.0 07/01/17 20:42 94 Oxymask 2.0 07/01/17 17:00 Room Air 07/01/17 15:49 92 Room Air 07/01/17 15:06 36.5 78 18 117/71 (86) 98 Nasal Cannula 2.0 07/01/17 12:56 36.7 76 18 117/68 (84) 99 Nasal Cannula 2.0 Laboratory Results 24 Hours: Test 07/02/17 08:00 White Blood Count 11.14 K/uL Red Blood Count 3.24 M/uL Hemoglobin 10.2 g/dL Hematocrit 33.3 % Mean Corpuscular Volume 102.8 fL Mean Corpuscular Hemoglobin 31.5 pg Mean Corpuscular Hemoglobin Concent 30.6 g/dl Platelet Count 181 K/uL Mean Platelet Volume 9.3 fL Neutrophils (%) (Auto) 68.0 % Lymphocytes (%) (Auto) 19.4 % Monocytes (%) (Auto) 11.4 % Eosinophils (%) (Auto) 0.6 % Basophils (%) (Auto) 0.2 % Neutrophils # (Auto) 7.57 K/uL Lymphocytes # (Auto) 2.16 K/uL Monocytes # (Auto) 1.27 K/uL Eosinophils # (Auto) 0.07 K/uL Basophils # (Auto) 0.02 K/uL Assessment Left femur fracture Plan will await family/Dr. Muñoz's decision regarding operative vs. non- operative management, tentatively on the OR schedule for today 07/02/17 will keep NPO in the meantime pain control/medications as ordered traction left LE mechanical devices for DVT prophylaxis continue to monitor will discuss findings further with Dr. Muñoz any other questions or concerns please notify [facility] [phone], thank you I spoke with Dr. Thomas, whom reports the patient is optimized for surgery today 07/02/[address] Muñoz.
[2017-07-02] MEDS ORDERED: CLINDAMYCIN IV 900 MG in DEXTROSE 5% 50ML 50 ML IV SCH (11:30)
[2017-07-02] MEDS ORDERED: EpHEDrine SULFATE INJ 50 MG/ML AMP IV PRN (12:00)
[2017-07-02] MEDS ORDERED: FENTANYL CITRATE INJ 50 MCG/1 ML 2 ML VIAL IV PRN (12:00)
[2017-07-02] MEDS ORDERED: ATROPINE SULFATE 0.1 MG/ML 5ML SYR IV PRN (12:00)
[2017-07-02] MEDS ORDERED: ONDANSETRON INJ 2 MG/ML 2 ML VIAL IV PRN ×2 (12:00→17:00)
[2017-07-02] MEDS ORDERED: HYDROmorphone INJ 1 MG/ML SYR IV PRN (12:00)
[2017-07-02] MEDS ORDERED: LABETALOL HCL IV 5 MG/ML 20ML IV PRN (12:00)
[2017-07-02] MEDS ORDERED: PHENYLEPHRINE 100MCG/ML 5ML SYR IV PRN (12:00)
[2017-07-02] MEDS ORDERED: MIDAZOLAM HCL 1 MG/ML 2ML VIAL ONE (12:16)
[2017-07-02] MEDS ORDERED: FENTANYL CITRATE INJ 50 MCG/1 ML 2 ML VIAL ONE ×2 (12:16→17:07)
--- NOTE | 2017-07-02 13:58 | Medical Student: [facility] ---
Med Student Progress Note Date of Service Jul 02, 2017. Subjective Pt evaluation today including: conversation w/ patient No acute events overnight. Pt was very lethargic in the morning, but was able to wake up more by the afternoon. A&O x1. Scheduled for repair of femur at 1230 today. Review of Systems Notes: ROS limited by pt's mental status. Objective Vital Signs Date Time Temp Pulse Resp B/P (MAP) Pulse Ox O2 Delivery O2 Flow Rate FiO2 07/02/17 09:33 37.0 80 16 140/67 (91) 96 Mask 2.0 07/02/17 07:30 Oxymask 2.0 07/01/17 23:45 37.3 108 18 122/67 (85) 96 Oxymask 2.0 07/01/17 23:45 Oxymask 2.0 07/01/17 20:42 94 Oxymask 2.0 07/01/17 17:00 Room Air 07/01/17 15:49 92 Room Air 07/01/17 15:06 36.5 78 18 117/71 (86) 98 Nasal Cannula 2.0 Physical Exam General Appearance: WD/WN, no apparent distress Neck: supple, no JVD Respiratory/Chest: chest non-tender, lungs clear, no accessory muscle use Cardiovascular: regular rate, rhythm, no edema, no JVD, no murmur Abdomen: normal bowel sounds, non tender, soft Extremities: no pedal edema, no calf tenderness, + slow capillary refill Skin: normal color, warm/dry Laboratory Results Last 24 Hours Test 07/02/17 08:00 White Blood Count 11.14 K/uL Red Blood Count 3.24 M/uL Hemoglobin 10.2 g/dL Hematocrit 33.3 % Mean Corpuscular Volume 102.8 fL Mean Corpuscular Hemoglobin 31.5 pg Mean Corpuscular Hemoglobin Concent 30.6 g/dl Platelet Count 181 K/uL Mean Platelet Volume 9.3 fL Neutrophils (%) (Auto) 68.0 % Lymphocytes (%) (Auto) 19.4 % Monocytes (%) (Auto) 11.4 % Eosinophils (%) (Auto) 0.6 % Basophils (%) (Auto) 0.2 % Neutrophils # (Auto) 7.57 K/uL Lymphocytes # (Auto) 2.16 K/uL Monocytes # (Auto) 1.27 K/uL Eosinophils # (Auto) 0.07 K/uL Basophils # (Auto) 0.02 K/uL RDW Standard Deviation 53.4 fL RDW Coefficient of Variation 14.2 % Immature Granulocyte % (Auto) 0.4 % Immature Granulocyte # (Auto) 0.05 K/uL Sodium Level 141 mmol/L Potassium Level 4.3 mmol/L Chloride Level 107 mmol/L Carbon Dioxide Level 28 mmol/L Anion Gap 6.0 mmol/L Blood Urea Nitrogen 12 mg/dl Creatinine 0.68 mg/dl Estimated GFR () 90.5 Estimated GFR (Non- 78.1 BUN/Creatinine Ratio 17.5 Random Glucose 122 mg/dl Calcium Level 8.2 mg/dl Magnesium Level 2.2 mg/dl Assessment and Plan Assessment and Plan: Pt is a 87 yo F who presents for fall on 06/30, denies hitting her head and notes pain on left leg. Femur XR confirm mid diaphyseal fracture of the left femur with pelvis XR and head CT benign. She has medical history significant for cardiac dysarrhythmia, hyperthyroidism, depression and insomnia. Her abdominal tenderness, SOB and edema appear to have resolved. New onset decrease in Hgb (Hgb on05/31 was 13.7 and this morning was 10.2.) 1. Left mid diaphyseal fracture of femur a. Ortho consulted ans surgery scheduled for today at 1230 b. Continue PRN IV morphine and PO oxycodone as needed for pain 2. Cardiac Dysrhythmia - noted both as possible SVT or afib/flutter but no note of anticoagulation a. Continue pt's Amiodarone 100mg 3. Hyperthyroidism a. Continue methimazole 5mg BID 4. Depression and Insomnia a. Hold sertraline and mirtazapine 5. Abdominal tenderness possible constipation - resolved 6. Edema and SOB - possibly secondary to volume overload, SOB could also be due to atelectatic changes - both appear to have resolved a. Continue IVF at 80mg/hr b. Encourage incentive spirometry 7. Anemia a. Hgb drop from 13.7 on 07/01 to 10.2 today likely due to bleeding into fracture site b. Continue to monitor pt's CBC for changes and may need transfusion post- surgery
[2017-07-02] MEDS ORDERED: PROPOFOL IV EMULSION 10 MG/ML 20 ML VIAL IV ONE (14:40)
[2017-07-02] MEDS ORDERED: ROCURONIUM BROMIDE 10 MG/ML 5 ML VIAL IV ONE (14:41)
[2017-07-02] MEDS ORDERED: ESMOLOL HCL 10 MG/ML 10 ML VIAL ONE (14:41)
[2017-07-02] MEDS ORDERED: BACITRACIN 50000 UNIT VIAL ONE (14:56)
[2017-07-02] MEDS ORDERED: PHENYLEPHRINE 100MCG/ML 5ML SYR ONE (15:04)
[2017-07-02] MEDS ORDERED: METOPROLOL TARTRATE 1 MG/ML VIAL ONE (15:04)
[2017-07-02] MEDS ORDERED: AMIODARONE HCL INJ 50 MG/ML 3 ML VIAL ONE (15:05)
--- NOTE | 2017-07-02 16:39 | [facility] Operative Report ---
Operative Report Operative Date Jul 02, 2017. Pre-Operative Diagnosis comminuted fracture of the left femur with osteoporosis. 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 Specimens None per surgeon Drains none Anesthesia Gen. Complication(s) None Disposition Recovery Room / PACU Indications The patient is an 87-year-old female who is resident [facility]. She has no immediate family. Her nephew has power of commercial real estate attorney for her. It is reported that she ambulates with assistance in her room and can be transferred with 2 person assistance and get out of bed and sit in a chair. She can only ambulate with assistance and does not ambulate independently. She weight bears for transfers. The patient is demented. She sustained a fall 2 days ago resulting in the after mentioned injury. I spoke with Dr. matos and contacted the nursing unit as well as extensively spoke with her power of commercial real estate attorney nephew. The options for operative and nonoperative management were discussed. The family elected to proceed with surgical intervention. The risks of surgery including inability to walk infection bleeding pain scarring of the distal damage blood clots embolism heart attack stroke and were all reviewed and discussed. There are risks of additional fractures occurring. Because of what appears to be bony ankylosis of her hip she may have difficulty with positioning or mobility to obtain fracture reduction. It may be difficult or not possible to place an intramedullary josh. An open reduction might be necessary. Nonoperative management entails the risks of not being able to ambulate pain with transfers bedsores and pneumonia blood clots. After weighing out these different options surgery was elected. Description of Procedure Informed consent was obtained a with power of commercial real estate attorney over the phone. Reoperative surgical timeout was performed. Appropriate dose of IV antibiotics was given. She was taken to the operating room positioned supine on the operating room table after administration of a general anesthetic. Her hips are ankylosed with absolutely no range of motion. This confirmed was seen radiographically. The right knee kidney flexed about 45 in the left knee 30-45 . He could flex further possibly but I did not test. Bump was placed under her left hip. Rankin catheter was inserted which required 2-3 person assist as she had significant adduction contracture of her hips kinking exposure of the area difficult but a Rankin was able to be inserted on the second try using sterile technique. It appeared that she had significant adduction contracture particularly of the left hip so that the left hip left leg 1 to rest over the right. The operative site was identified as the left femur and I marked with my initials DVT prophylaxis intraoperatively with a SCD. Postoperatively she' ll be placed on chemoprophylaxis which will be coordinated with medicine. The fracture could be reduced with some longitudinal traction internal rotation and abduction and medialward pressure on the distal fragment. At that there were still some residual lateral displacement. The proximal fragment could not be manipulated at all. The left leg was prepped and draped from the hip to the ankle in the usual sterile fashion. A midline incision was made beginning at the patella and extending down to the tibial tubercle the patellar tendon was identified in the center of it was split longitudinally to gain access to the knee fat pad was bluntly dissected. Starting point was identified in the AP and lateral planes fluoroscopically a guidepin was inserted followed by overreaming. The guide josh was advanced fracture was reduced and the guide josh was passed across the fracture site on the first attempt. Josh length was determined to be 360 mm. Reaming began at size 10 and proceeded up to size 13 in 1 mm increments. The fracture was held reduced when reaming. A 12 x 3 60 josh was then inserted under hand power and buried 5 mm below the subchondral bone confirmed visually and radiographically. Percutaneous distal interlocking screw was inserted followed by a percutaneous spiral blade plate and then an and locking. A proximal interlocking screw was inserted using a percutaneous technique from anterior to posterior. The perfect [place] technique with a radiolucent drill was utilized. The fracture was reasonably well reduced although there was significant comminution and butterfly fragment present. The tip of the josh leg just below the lesser trochanter. AP lateral images of the fracture site and proximal and distal extents of the josh were obtained. WOUNDS were copious irrigated with sterile saline the proximal incision was closed with 2-0 Vicryl peri the lateral incision with 0 Vicryl 2-0 Vicryl and peri. Anterior incision was closed with #1 Vicryl for the patellar tendon 2-0 Vicryl and peri. The entry point was palpated and the josh was buried 5 mm. The leg assumed and abducted position so that her left leg appeared to be crossed over the right at rest. The knee could be flexed 30. Patient awakened from anesthesia without difficulty taken to the recovery room in stable condition. There were no specimens or complications. Counts are correct in the case. Blood loss was approximately 100 mL. At the conclusion operation I contacted the patient's power of commercial real estate attorney by phone informed of my findings postoperative instructions were given. She'll be started on DVT prophylaxis in the morning. She will not be able to ambulate and will have to carefully transfer her from bed to reclining chair if possible. Components inserted were a Synthes retrograde femoral nail 12 x 3 60. A 80 mm spiral blade 0 and A 5 mm x 34 proximal interlocking screw and a 5 x 60 distal interlocking screw I attest to the content of the Intraoperative Record and any orders documented therein. Any exceptions are noted below.
[2017-07-02] MEDS ORDERED: TRAMADOL HCL 50 MG TAB PO PRN (17:00)
[2017-07-02] MEDS ORDERED: CEFAZOLIN IV 2,000 MG in DEXTROSE 5% 50ML 50 ML IV SCH (17:00)
--- NOTE | 2017-07-02 17:08 | [facility] Operative Report ---
Operative Report Operative Date Jul 02, 2017. Pre-Operative Diagnosis comminuted fracture of the left femur with osteoporosis. 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 Complication(s) None Disposition Recovery Room / PACU (stable) Indications Female status post fall at [facility] on Saturday evening. She was complaining of left thigh pain and inability to get up. It was an unwitnessed fall. She was brought to the emergency room where x-rays were taken and she was found to have a closed left midshaft femur fracture. Dr. Muñoz was consult to for care of the fracture. Surgical versus conservative treatment was discussed with her family. The family wished to proceed with surgery. Informed consent was obtained. Risks and complications were discussed. Description of Procedure Patient was taken to the operating room and placed under general anesthesia. She was given 2 g of IV Ancef for surgical prophylaxis. She was given another gram of Ancef prior to surgery to be within the 1 hour incision marked. Timeout was performed. She was prepped and draped in routine sterile fashion. Please see Dr. Muñoz's operative report for further detail. I was present during the entire case. She was awakened and transferred to recovery room in stable condition. I attest to the content of the Intraoperative Record and any orders documented therein. Any exceptions are noted below.
--- NOTE | 2017-07-02 17:37 | Progress Note ---
Subjective Date of Service: Jul 02, 2017. Subjective pt is pleasantly confused pre op, intra op anesthesia reports some short runs of self sustained and spontaneously converted Afib, will have in tele post procedure for close monitoring Problem List Medical Problems: (1) Femur fracture, left Status: Acute (2) Syncope Status: Acute (3) UTI (urinary tract infection) Status: Acute Review of Systems Constitutional: No fever, No chills Respiratory: No cough, No sputum, No shortness of breath Cardiac: No chest pain, No edema Abdomen: No pain, No nausea, No vomiting, No diarrhea Psychiatric: + depression symptoms, + problem reported (confusion) Objective Vital Signs Date Time Temp Pulse Resp B/P (MAP) Pulse Ox O2 Delivery O2 Flow Rate FiO2 07/02/17 09:33 37.0 80 16 140/67 (91) 96 Mask 2.0 07/02/17 07:30 Oxymask 2.0 07/01/17 23:45 37.3 108 18 122/67 (85) 96 Oxymask 2.0 07/01/17 23:45 Oxymask 2.0 07/01/17 20:42 94 Oxymask 2.0 07/01/17 17:00 Room Air Physical Exam General Appearance: WD/WN, + mild distress Eyes: PERRL, EOMI Respiratory/Chest: chest non-tender, lungs clear, normal breath sounds Cardiovascular: regular rate, rhythm, no murmur Abdomen: normal bowel sounds, non tender, soft Neurologic/Psychiatric: alert, + disoriented Laboratory Results Last 24 Hours Test 07/02/17 08:00 White Blood Count 11.14 K/uL Red Blood Count 3.24 M/uL Hemoglobin 10.2 g/dL Hematocrit 33.3 % Mean Corpuscular Volume 102.8 fL Mean Corpuscular Hemoglobin 31.5 pg Mean Corpuscular Hemoglobin Concent 30.6 g/dl Platelet Count 181 K/uL Mean Platelet Volume 9.3 fL Neutrophils (%) (Auto) 68.0 % Lymphocytes (%) (Auto) 19.4 % Monocytes (%) (Auto) 11.4 % Eosinophils (%) (Auto) 0.6 % Basophils (%) (Auto) 0.2 % Neutrophils # (Auto) 7.57 K/uL Lymphocytes # (Auto) 2.16 K/uL Monocytes # (Auto) 1.27 K/uL Eosinophils # (Auto) 0.07 K/uL Basophils # (Auto) 0.02 K/uL RDW Standard Deviation 53.4 fL RDW Coefficient of Variation 14.2 % Immature Granulocyte % (Auto) 0.4 % Immature Granulocyte # (Auto) 0.05 K/uL Sodium Level 141 mmol/L Potassium Level 4.3 mmol/L Chloride Level 107 mmol/L Carbon Dioxide Level 28 mmol/L Anion Gap 6.0 mmol/L Blood Urea Nitrogen 12 mg/dl Creatinine 0.68 mg/dl Estimated GFR () 90.5 Estimated GFR (Non- 78.1 BUN/Creatinine Ratio 17.5 Random Glucose 122 mg/dl Calcium Level 8.2 mg/dl Magnesium Level 2.2 mg/dl Assessment and Plan 87 f with acute femur fracture and moderate dementia, intra operative self sustained and spontaneously converted afib Left femoral shaft closed fracture--orthopedic surgery in discussion with family regarding surgery or medical management. Morphine sulfate 2-4 mg IV every 2 hours when necessary moderate to severe pain. apply traction Cardiac dysrhythmia--has both SVT and afib/flutter in chart, no previous discussion of AC, monitor for afib in tele post op Continue amiodarone 100 mg by mouth every morning. Hold Aggrenox and potassium chloride., no discussion in past for formal AC, will have post op DVT prevention lovenox but will discuss with cardiology about AC acute blood loss anemia secondary to long bone fracture Hyperthyroidism--remains clinically euthyroid, Continue methimazole 5 mg by mouth twice a day. Depression and insomnia--continue mirtazapine and sertraline. lovenox for DVT prevention
--- NOTE | 2017-07-02 17:48 | Anesthesiology Progress Note ---
Anesthesia Post Op Note Date & Time Jul 02, 2017 at 17:48 Vital Signs Pain Intensity: 4 Vital Signs Past 12 Hours Date Time Temp Pulse Resp B/P (MAP) Pulse Ox O2 Delivery O2 Flow Rate FiO2 07/02/17 17:40 88 16 137/77 98 Oxymask 4 07/02/17 17:25 36.4 83 16 121/46 96 Oxymask 4 07/02/17 17:15 85 16 126/60 100 Nasal Cannula 4 07/02/17 17:05 86 16 117/66 100 Oxymask 10 07/02/17 16:55 81 16 145/58 100 Oxymask 10 07/02/17 16:48 37.1 90 16 159/78 99 Oxymask 10 07/02/17 09:33 37.0 80 16 140/67 (91) 96 Mask 2.0 07/02/17 07:30 Oxymask 2.0 Notes Mental Status: alert / awake / arousable, participated in evaluation Pt Amnestic to Procedure: Yes Nausea / Vomiting: adequately controlled Pain: adequately controlled Airway Patency, RR, SpO2: stable & adequate BP & HR: stable & adequate Hydration State: stable & adequate Anesthetic Complications: no major complications apparent
--- NOTE | 2017-07-02 18:49 | DIAGNOSTIC IMAGING REPORT ---
L FEMUR 2 VIEWS ROUTINE CLINICAL HISTORY: LEFT HIP RETROGRADE NAIL COMPARISON STUDY: Left femur 06/30/2017. FINDINGS: Total fluoroscopy time is 3 minutes and 38 seconds. 6 fluoroscopic spot images of the left femur. There is an intramedullary perez transfixed with proximal and distal screws. This traverses the femoral shaft fracture. There is improved anatomic alignment with mild lateral displacement and mild angulation remaining. The hardware appears intact. IMPRESSION: Fluoroscopy provided for internal fixation of a left femoral shaft fracture. Electronically signed by: Shekhar Olson M.D. 07/02/2017 6:47 PM Dictated Date/Time: 07/02/2017 6:46 PM
[2017-07-02] MEDS: DOCUSATE SODIUM/SENNA 50/8.6MG TAB PO SCH (20:28)
[2017-07-02 20:38] LABS: MANUAL MICROSCOPIC REQUIRED? NO; REVIEW REQ? NO; URINE APPEARANCE CLEAR (CLEAR); URINE BILIRUBIN NEG (NEG); URINE COLOR YELLOW; URINE EPITHELIAL CELL AUTO >30 /lpf (0-5); URINE NITRITE NEG (NEG); URINE SPECIFIC GRAVITY 1.026 (1.000-1.030); UROBILINOGEN NEG (NEG); ZZURINE CULT IF INDIC CATH NO
[2017-07-02] MEDS: MoRPHine SULFATE 4 MG/ML 1 ML CARP\\VIAL IV PRN (22:10)
[2017-07-02] MEDS: CEFAZOLIN IV 2,000 MG in SYRINGE 0 ML IV SCH (23:43)
[2017-07-03] VITALS (9 sets, daily range): BP systolic 88–116; BP diastolic 44–71; PULSE 89–104; TEMP 36.4–37.4; O2SAT 97–100
[2017-07-03] MEDS: MoRPHine SULFATE 4 MG/ML 1 ML CARP\\VIAL IV PRN ×2 (05:20→11:43)
[2017-07-03] MEDS: CEFAZOLIN IV 2,000 MG in SYRINGE 0 ML IV SCH (06:31)
[2017-07-03] MEDS: NSS + 20MEQ KCL 1000ML 1,000 ML IV SCH ×3 (07:32→23:18)
[2017-07-03] MEDS: METHIMAZOLE 5 MG TAB PO SCH ×2 (07:33→19:15)
[2017-07-03] MEDS: AMIODARONE 200 MG TAB PO SCH (07:34)
[2017-07-03] MEDS: ENOXAPARIN 40 MG/0.4 ML SYR SQ SCH (07:34)
[2017-07-03 09:07] LABS: BASO % 0.1 %; BASO ABS # 0.01 K/uL (0-0.2); EOS % 0.5 %; HEMATOCRIT 25.4 % (37-47); IG% 0.5 %; LYMPH % 18.8 %; LYMPH ABS # 2.11 K/uL (1.2-3.4); MEAN CELL VOLUME 101.6 fL (80-100); MEAN CORPUSCULAR HEMOGLOBIN 31.6 pg (25-34); MEAN CORPUSCULAR HGB CONC 31.1 g/dl (32-36); MEAN PLATELET VOLUME 9.3 fL (7.4-10.4); NEUT % 67.1 %; PLATELET COUNT 172 K/uL (130-400); WHITE BLOOD COUNT 11.21 K/uL (4.8-10.8)
--- NOTE | 2017-07-03 09:16 | Orthopedic Progress Note ---
Orthopedic Progress Note Date of Service Jul 03, 2017. Subjective Post OP Day: 1 Additional Notes: Resting in bed, doesn't open eyes, does respond to questioning. pillow between legs, 1:1 STEEL RIGGER at bedside. States she's been sleeping all day, hasn't moved at all. Objective calves soft nontender, N/V intact, capillary refill less than 2 sec., dressing C /D/I Foot warm. Doesn't follow commands to wiggle toes. Barely wakes up to answer questions Date Time Temp Pulse Resp B/P (MAP) Pulse Ox O2 Delivery O2 Flow Rate FiO2 07/03/17 08:11 Nasal Cannula 4.0 07/03/17 08:00 Oxymask 4.0 07/03/17 07:23 36.7 104 20 116/71 (86) 99 Oxymask 4.0 07/03/17 04:09 37.0 95 19 99/55 (70) 100 Mask 4.0 07/03/17 04:02 Oxymask 4.0 07/03/17 00:02 Oxymask 4.0 07/02/17 23:25 94 130/76 (94) 07/02/17 23:03 37.2 98 19 81/56 (64) 99 Mask 4.0 07/02/17 20:17 37.2 90 21 130/68 (88) 98 Oxymask 4.0 07/02/17 19:56 37.2 96 20 138/75 (96) 95 Oxymask 4.0 07/02/17 19:40 36.8 84 22 121/71 (88) 100 Oxymask 4.0 07/02/17 19:30 Oxymask 4.0 07/02/17 19:30 98 Oxymask 4.0 07/02/17 19:10 89 14 137/68 96 Oxymask 4 07/02/17 18:55 77 17 112/49 95 Oxymask 4 07/02/17 18:40 88 21 120/60 93 Oxymask 4 07/02/17 18:25 85 16 137/70 98 Oxymask 4 07/02/17 18:10 88 15 120/60 98 Oxymask 4 07/02/17 17:55 87 18 140/82 98 Oxymask 4 07/02/17 17:40 88 16 137/77 98 Oxymask 4 07/02/17 17:25 36.4 83 16 121/46 96 Oxymask 4 07/02/17 17:15 85 16 126/60 100 Nasal Cannula 4 07/02/17 17:05 86 16 117/66 100 Oxymask 10 07/02/17 16:55 81 16 145/58 100 Oxymask 10 07/02/17 16:48 37.1 90 16 159/78 99 Oxymask 10 07/02/17 09:33 37.0 80 16 140/67 (91) 96 Mask 2.0 Laboratory Results 24 Hours: Test 07/03/17 08:25 White Blood Count 11.21 K/uL Red Blood Count 2.50 M/uL Hemoglobin 7.9 g/dL Hematocrit 25.4 % Mean Corpuscular Volume 101.6 fL Mean Corpuscular Hemoglobin 31.6 pg Mean Corpuscular Hemoglobin Concent 31.1 g/dl Platelet Count 172 K/uL Mean Platelet Volume 9.3 fL Neutrophils (%) (Auto) 67.1 % Lymphocytes (%) (Auto) 18.8 % Monocytes (%) (Auto) 13.0 % Eosinophils (%) (Auto) 0.5 % Basophils (%) (Auto) 0.1 % Neutrophils # (Auto) 7.51 K/uL Lymphocytes # (Auto) 2.11 K/uL Monocytes # (Auto) 1.46 K/uL Eosinophils # (Auto) 0.06 K/uL Basophils # (Auto) 0.01 K/uL Assessment & Plan Assessment: POD 1 - s/p IM rodding Left femur fracture Plan: diet as tolerated Needs to remain on bedrest but can use transfer board to get to reclining chair with assistance. Needs to be NWB LLE ROM ankle and knee as tolerated. Unable to do hip ROM due to autofusion. SCD's bilateral lower extremities Ice and elevation as needed for pain/swelling. Recommend waffle boots, heel precautions, elevated heels off bed Will discuss findings with Dr. Muñoz and continue to follow. [facility] to [facility] upon discharge. Please call [phone] with questions.
--- NOTE | 2017-07-03 09:19 | Consultant Recommendations ---
Ultrasound Technol Recommendations Date of Service Jul 03, 2017. Ultrasound Technol Recommendations Non weight bearing left lower extremity Bedrest but allowed to be out of bed to chair with assistance of transfer board No ambulation Heel precautions; elevate heels off bed. Dressings to left knee and thigh at all times; may change daily and PRN. Elevate left lower extremity as needed for swelling Ice to left knee/thigh as needed for pain/swelling. You have a follow up appointment scheduled with Dr. Muñoz on 07/17/17 at 12: 45 p.m.. Please call [phone] with problems or questions or need to reschedule appointment.
[2017-07-03 09:30] LABS: COMPLETE YES
[2017-07-03 09:32] LABS: BLOOD UREA NITROGEN 9 mg/dl (7-18); BUN/CREATININE RATIO 13.4 (10-20); CALCIUM 7.9 mg/dl (8.5-10.1); CARBON DIOXIDE 30 mmol/L (21-32); CHLORIDE 106 mmol/L (98-107); CREATININE 0.64 mg/dl (0.60-1.20); GLUCOSE 130 mg/dl (70-99); MAGNESIUM 1.9 mg/dl (1.8-2.4); POTASSIUM 4.2 mmol/L (3.5-5.1); SODIUM 140 mmol/L (136-145)
--- NOTE | 2017-07-03 14:31 | Medical Student: [facility] ---
Med Student Progress Note Date of Service Jul 03, 2017. Subjective Pt has been very disoriented post-surgery. She is currently on 1:1 supervision as she removed her Rankin and IV. Oligouric since surgery, and nurses noted urine to be dark and foul-smelling last night. Review of Systems Notes: Could not obtain due to pt's mental status. Objective Vital Signs Date Time Temp Pulse Resp B/P (MAP) Pulse Ox O2 Delivery O2 Flow Rate FiO2 07/03/17 14:01 36.4 89 18 92/58 99 4.0 07/03/17 13:32 36.4 95 18 88/44 97 4.0 07/03/17 13:12 36.9 97 18 94/46 97 4.0 07/03/17 12:33 Nasal Cannula 4.0 07/03/17 11:00 36.9 95 18 111/71 (84) 100 Oxymask 4.0 07/03/17 08:11 Nasal Cannula 4.0 07/03/17 08:00 Oxymask 4.0 07/03/17 07:23 36.7 104 20 116/71 (86) 99 Oxymask 4.0 07/03/17 04:09 37.0 95 19 99/55 (70) 100 Mask 4.0 07/03/17 04:02 Oxymask 4.0 07/03/17 00:02 Oxymask 4.0 07/02/17 23:25 94 130/76 (94) 07/02/17 23:03 37.2 98 19 81/56 (64) 99 Mask 4.0 07/02/17 20:17 37.2 90 21 130/68 (88) 98 Oxymask 4.0 07/02/17 19:56 37.2 96 20 138/75 (96) 95 Oxymask 4.0 07/02/17 19:40 36.8 84 22 121/71 (88) 100 Oxymask 4.0 07/02/17 19:30 Oxymask 4.0 07/02/17 19:30 98 Oxymask 4.0 07/02/17 19:10 89 14 137/68 96 Oxymask 4 07/02/17 18:55 77 17 112/49 95 Oxymask 4 07/02/17 18:40 88 21 120/60 93 Oxymask 4 07/02/17 18:25 85 16 137/70 98 Oxymask 4 07/02/17 18:10 88 15 120/60 98 Oxymask 4 07/02/17 17:55 87 18 140/82 98 Oxymask 4 07/02/17 17:40 88 16 137/77 98 Oxymask 4 07/02/17 17:25 36.4 83 16 121/46 96 Oxymask 4 07/02/17 17:15 85 16 126/60 100 Nasal Cannula 4 07/02/17 17:05 86 16 117/66 100 Oxymask 10 07/02/17 16:55 81 16 145/58 100 Oxymask 10 07/02/17 16:48 37.1 90 16 159/78 99 Oxymask 10 Physical Exam General Appearance: WD/WN Respiratory/Chest: chest non-tender, lungs clear Cardiovascular: regular rate, rhythm, no gallop, no murmur Abdomen: normal bowel sounds, non tender, soft Extremities: no pedal edema, normal capillary refill Neurologic/Psychiatric: + disoriented (A&O x0) Skin: normal color, warm/dry, no rash Laboratory Results Last 24 Hours Test 07/02/17 20:20 07/03/17 08:25 Urine Color YELLOW Urine Appearance CLEAR Urine pH 5.0 Urine Specific Mcnary 1.026 Urine Protein NEG Urine Glucose (UA) NEG Urine Ketones NEG Urine Occult Blood NEG Urine Nitrite NEG Urine Bilirubin NEG Urine Urobilinogen NEG Urine Leukocyte Esterase TRACE Urine WBC (Auto) 5-10 /hpf Urine RBC (Auto) 5-10 /hpf Urine Hyaline Casts (Auto) 10-30 /lpf Urine Epithelial Cells (Auto) >30 /lpf Urine Bacteria (Auto) NEG White Blood Count 11.21 K/uL Red Blood Count 2.50 M/uL Hemoglobin 7.9 g/dL Hematocrit 25.4 % Mean Corpuscular Volume 101.6 fL Mean Corpuscular Hemoglobin 31.6 pg Mean Corpuscular Hemoglobin Concent 31.1 g/dl Platelet Count 172 K/uL Mean Platelet Volume 9.3 fL Neutrophils (%) (Auto) 67.1 % Lymphocytes (%) (Auto) 18.8 % Monocytes (%) (Auto) 13.0 % Eosinophils (%) (Auto) 0.5 % Basophils (%) (Auto) 0.1 % Neutrophils # (Auto) 7.51 K/uL Lymphocytes # (Auto) 2.11 K/uL Monocytes # (Auto) 1.46 K/uL Eosinophils # (Auto) 0.06 K/uL Basophils # (Auto) 0.01 K/uL RDW Standard Deviation 52.5 fL RDW Coefficient of Variation 14.2 % Immature Granulocyte % (Auto) 0.5 % Immature Granulocyte # (Auto) 0.06 K/uL Sodium Level 140 mmol/L Potassium Level 4.2 mmol/L Chloride Level 106 mmol/L Carbon Dioxide Level 30 mmol/L Anion Gap 4.0 mmol/L Blood Urea Nitrogen 9 mg/dl Creatinine 0.64 mg/dl Estimated GFR () 92.3 Estimated GFR (Non- 79.7 BUN/Creatinine Ratio 13.4 Random Glucose 130 mg/dl Calcium Level 7.9 mg/dl Magnesium Level 1.9 mg/dl Assessment and Plan Assessment and Plan: Pt is a 87 yo F who presents for fall on 06/30, denies hitting her head and notes pain on left leg. Femur XR confirm mid diaphyseal fracture of the left femur with pelvis XR and head CT benign. She has medical history significant for cardiac dysarrhythmia, hyperthyroidism, depression and insomnia. She is s/p surgical repair of her femur. Surgery noted BL of 100mL. Her Hgb has dropped from 10.2 to 7.9. Noted an instance of afib during her surgery which spontaneously resolved into sinus. Currently being monitored on telemetry. New onset decrease in Hgb (Hgb on05/31 was 13.7 and this morning was 10.2.) UA done the evening of 07/02 shows +leukocyte esterase, pyuria, hematuria, and culture preliminary report shows no bacteria. 1. Left mid diaphyseal fracture of femur a. Ortho consulted ans surgery scheduled for today at 1230 b. Continue PRN IV morphine and PO oxycodone as needed for pain 2. Cardiac Dysrhythmia - noted both as possible SVT or afib/flutter but no note of anticoagulation a. Continue pt's Amiodarone 100mg b. Pt to remain on telemetry today, consider moving to floor if she continues to do well 3. Hyperthyroidism a. Continue methimazole 5mg BID 4. Depression and Insomnia a. Hold sertraline and mirtazapine 5. Anemia a. Transfuse 1 pRBCs. 6. DVT prevention a. Lovenox
--- NOTE | 2017-07-03 18:17 | Progress Note ---
Subjective Date of Service: Jul 03, 2017. Subjective pt is pleasantly confused , pale and weak, does have intermittent afib on monitor Problem List Medical Problems: (1) Femur fracture, left Status: Acute (2) Syncope Status: Acute (3) UTI (urinary tract infection) Status: Acute Review of Systems Constitutional: No fever, No chills, No weakness Respiratory: No cough, No shortness of breath Cardiac: No chest pain, No edema Abdomen: No pain, No nausea, No vomiting, No diarrhea Objective Vital Signs Date Time Temp Pulse Resp B/P (MAP) Pulse Ox O2 Delivery O2 Flow Rate FiO2 07/03/17 16:00 Nasal Cannula 4.0 07/03/17 14:51 36.7 94 18 107/66 97 4.0 07/03/17 14:01 36.4 89 18 92/58 99 4.0 07/03/17 13:32 36.4 95 18 88/44 97 4.0 07/03/17 13:12 36.9 97 18 94/46 97 4.0 07/03/17 12:33 Nasal Cannula 4.0 07/03/17 11:00 36.9 95 18 111/71 (84) 100 Oxymask 4.0 07/03/17 08:11 Nasal Cannula 4.0 07/03/17 08:00 Oxymask 4.0 07/03/17 07:23 36.7 104 20 116/71 (86) 99 Oxymask 4.0 07/03/17 04:09 37.0 95 19 99/55 (70) 100 Mask 4.0 07/03/17 04:02 Oxymask 4.0 07/03/17 00:02 Oxymask 4.0 07/02/17 23:25 94 130/76 (94) 07/02/17 23:03 37.2 98 19 81/56 (64) 99 Mask 4.0 07/02/17 20:17 37.2 90 21 130/68 (88) 98 Oxymask 4.0 07/02/17 19:56 37.2 96 20 138/75 (96) 95 Oxymask 4.0 07/02/17 19:40 36.8 84 22 121/71 (88) 100 Oxymask 4.0 07/02/17 19:30 Oxymask 4.0 07/02/17 19:30 98 Oxymask 4.0 07/02/17 19:10 89 14 137/68 96 Oxymask 4 07/02/17 18:55 77 17 112/49 95 Oxymask 4 07/02/17 18:40 88 21 120/60 93 Oxymask 4 07/02/17 18:25 85 16 137/70 98 Oxymask 4 Physical Exam General Appearance: WD/WN, + mild distress Eyes: PERRL, EOMI Respiratory/Chest: chest non-tender, lungs clear, normal breath sounds Cardiovascular: no murmur, + irregularly irregular Abdomen: normal bowel sounds, non tender, soft Extremities: normal range of motion, non-tender, no pedal edema Neurologic/Psychiatric: alert, + disoriented Laboratory Results Last 24 Hours Test 07/02/17 20:20 07/03/17 08:25 Urine Color YELLOW Urine Appearance CLEAR Urine pH 5.0 Urine Specific [place] 1.026 Urine Protein NEG Urine Glucose (UA) NEG Urine Ketones NEG Urine Occult Blood NEG Urine Nitrite NEG Urine Bilirubin NEG Urine Urobilinogen NEG Urine Leukocyte Esterase TRACE Urine WBC (Auto) 5-10 /hpf Urine RBC (Auto) 5-10 /hpf Urine Hyaline Casts (Auto) 10-30 /lpf Urine Epithelial Cells (Auto) >30 /lpf Urine Bacteria (Auto) NEG White Blood Count 11.21 K/uL Red Blood Count 2.50 M/uL Hemoglobin 7.9 g/dL Hematocrit 25.4 % Mean Corpuscular Volume 101.6 fL Mean Corpuscular Hemoglobin 31.6 pg Mean Corpuscular Hemoglobin Concent 31.1 g/dl Platelet Count 172 K/uL Mean Platelet Volume 9.3 fL Neutrophils (%) (Auto) 67.1 % Lymphocytes (%) (Auto) 18.8 % Monocytes (%) (Auto) 13.0 % Eosinophils (%) (Auto) 0.5 % Basophils (%) (Auto) 0.1 % Neutrophils # (Auto) 7.51 K/uL Lymphocytes # (Auto) 2.11 K/uL Monocytes # (Auto) 1.46 K/uL Eosinophils # (Auto) 0.06 K/uL Basophils # (Auto) 0.01 K/uL RDW Standard Deviation 52.5 fL RDW Coefficient of Variation 14.2 % Immature Granulocyte % (Auto) 0.5 % Immature Granulocyte # (Auto) 0.06 K/uL Sodium Level 140 mmol/L Potassium Level 4.2 mmol/L Chloride Level 106 mmol/L Carbon Dioxide Level 30 mmol/L Anion Gap 4.0 mmol/L Blood Urea Nitrogen 9 mg/dl Creatinine 0.64 mg/dl Estimated GFR () 92.3 Estimated GFR (Non- 79.7 BUN/Creatinine Ratio 13.4 Random Glucose 130 mg/dl Calcium Level 7.9 mg/dl Magnesium Level 1.9 mg/dl Assessment and Plan 87 f with acute femur fracture and moderate dementia, intra operative self sustained and spontaneously converted afib Left femoral shaft closed fracture--pain control, and follow advancement to PT per ortho Cardiac dysrhythmia--has both SVT and afib/flutter in chart, no previous discussion of AC, monitor for afib in tele post op Continue amiodarone 100 mg by mouth every morning. Hold Aggrenox and potassium chloride., no discussion in past for formal AC, will have post op DVT prevention lovenox but will discuss with cardiology about AC may be a good chance to move toward coumadin acute blood loss anemia secondary to long bone fracture, not acute post op anemia will transfuse Hyperthyroidism--remains clinically euthyroid, Continue methimazole 5 mg by mouth twice a day. Depression and insomnia-- mirtazapine and sertraline treatment . lovenox for DVT prevention
--- NOTE | 2017-07-03 18:32 | PROGRESS NOTE ---
DATE: 07/03/2017 HISTORY OF PRESENT ILLNESS: She is in bed with a sitter. She has been somewhat combative and has pulled off her [place]. PHYSICAL EXAMINATION: She is afebrile. Her vital signs are stable. Urine output is adequate. Her white count is 11, hematocrit is 25. PRP is noted. She did not follow commands or respond to questions coherently. She exhibits demented over reactive pain behaviors even to light touching of any part of her body and screams no. She does not follow commands wiggle her toes or questions about sensation. Her foot is warm on the left side and she does have 1+ dorsalis pedis pulse. Her dressing is clean and dry. There is no abnormal swelling of her thigh. IMPRESSION: 1. Acute postsurgical anemia. 2. Pathological fracture of the left femur. 3. Ambulatory dysfunction. 4. Bilateral hip fusions. 5. Dementia. PLAN: Pillows between the knees are not necessary. She has a significant adduction contracture. I do not attempt to move hips or bend knees. Padding can be placed under the heel. Her legs should be kept in line with her pelvis when rolling. She can be rolled side to side. Decubitus precautions. DVT prophylaxis with Lovenox. We will recheck H&H in the morning and transfuse as necessary. Pain appears to be well controlled. She is sleeping.
[2017-07-03] MEDS ORDERED: ERGOCALCIFEROL 50,000 INTER.UNIT CAP PO ONE (18:45)
[2017-07-03] MEDS: DOCUSATE SODIUM/SENNA 50/8.6MG TAB PO SCH (19:15)
[2017-07-03] MEDS ORDERED: HALOPERIDOL 1 MG TAB PO PRN (20:15)
[2017-07-03] MEDS ORDERED: HALOPERIDOL LACTATE 5 MG/ML 1 ML VIAL IV PRN (20:15)
[2017-07-04] VITALS (13 sets, daily range): BP systolic 96–130; BP diastolic 59–74; PULSE 98–135; TEMP 36.4–37.5; O2SAT 93–99
[2017-07-04] MEDS: AMIODARONE 200 MG TAB PO SCH ×2 (06:36→09:00)
[2017-07-04 07:34] LABS: HEMATOCRIT 24.5 % (37-47); MEAN CELL VOLUME 99.6 fL (80-100); MEAN CORPUSCULAR HEMOGLOBIN 31.3 pg (25-34); MEAN CORPUSCULAR HGB CONC 31.4 g/dl (32-36); MEAN PLATELET VOLUME 9.3 fL (7.4-10.4); PLATELET COUNT 160 K/uL (130-400); RED BLOOD COUNT 2.46 M/uL (4.2-5.4)
[2017-07-04] MEDS: METHIMAZOLE 5 MG TAB PO SCH ×2 (07:54→19:57)
[2017-07-04] MEDS: ENOXAPARIN 40 MG/0.4 ML SYR SQ SCH (07:55)
[2017-07-04] MEDS: NSS + 20MEQ KCL 1000ML 1,000 ML IV SCH ×2 (11:25→19:00)
--- NOTE | 2017-07-04 12:21 | PROGRESS NOTE ---
DATE: 07/04/2017 She is resting comfortably in bed and is very pleasant this morning. She responds to questions, although somewhat incoherently. She does follow commands and wiggles her toes and moves her ankle up and down, but does not comply with sensory or motor examination. Her foot is warm with minimal swelling and a 1+ dorsalis pedis pulse. She is afebrile. Her vital signs are stable. Urine output is adequate. Her white count is 9, hematocrit 25, hemoglobin 8. Platelets are 160. She is status post 1 unit of packed red blood cells. Cath urine is no growth. Her wounds are benign. She has swelling of her thigh, hip and knee movements are not possible due to her hip fusion. I do not think that it is necessary to really check her knee motion either. There is no significant erythema or drainage. Redressing is applied. IMPRESSION: 1. Acute postsurgical anemia. 2. Pathological fracture of the left femur. 3. Ambulatory dysfunction. 4. Bilateral hip fusions. 5. Dementia. PLAN: I will be out of town beginning today, returning on July 15. Dr. Agustin Gonzalez will be covering. For any further questions or concerns, please address to Dr. Gonzalez or Yani Rodriguez. She is nonweightbearing on the left leg. There may be difficulty having her in a fully seated position because of her hip fusions. She may be able to sit somewhat upright in a recliner chair. She cannot weightbear for transfers and she will require maximal assistance to transfer from bed to chair. Continue decubitus precautions, dressings can be changed daily. Continue Lovenox. Continue to monitor her H&H. Vitamin D level will be checked. Supplemental vitamin D given. She can follow up with me in 2 weeks from the date of surgery for x-rays and staple removal.
--- NOTE | 2017-07-04 14:25 | Medical Student: [facility] ---
Med Student Progress Note Date of Service Jul 04, 2017. Subjective Pt evaluation today including: physical exam, chart review, lab review, review of studies PO Intake: Good Pt still very agitated and confused. Remains on 1:1 supervision due to continued attempts of pt to pull out her lines and is currently in wrist restraints. Nurses noted this morning the pt had 1 min of SVT in 140's which spontaneously resolved. Review of Systems Notes: Unable to obtain due to pt's mental status. Objective Vital Signs Date Time Temp Pulse Resp B/P (MAP) Pulse Ox O2 Delivery O2 Flow Rate FiO2 07/04/17 14:03 37.3 106 18 121/68 93 2.0 07/04/17 13:46 37.0 101 18 96/59 96 2.0 07/04/17 12:25 100 20 98 Nasal Cannula 3.0 07/04/17 12:00 Nasal Cannula 2.0 07/04/17 11:37 36.9 100 18 121/72 (88) 96 Nasal Cannula 07/04/17 08:00 Nasal Cannula 3.0 07/04/17 07:05 36.8 104 24 118/72 (87) 96 Diffusion Mask 4.0 07/04/17 06:40 99 24 120/60 (80) 99 Oxymask 4.0 07/04/17 04:00 Oxymask 4.0 07/04/17 03:54 37.5 100 18 108/66 (80) 99 Oxymask 4.0 07/04/17 00:00 Oxymask 4.0 07/03/17 22:57 37.4 97 18 101/59 (73) 98 Oxymask 4.0 07/03/17 19:00 36.9 90 18 91/56 (68) 100 Nasal Cannula 4.0 07/03/17 16:00 Nasal Cannula 4.0 07/03/17 14:51 36.7 94 18 107/66 97 4.0 Physical Exam General Appearance: WD/WN Respiratory/Chest: chest non-tender, normal breath sounds, no respiratory distress Cardiovascular: regular rate, rhythm, no gallop, no JVD, no murmur Abdomen: normal bowel sounds, non tender, soft Extremities: no pedal edema, + slow capillary refill Neurologic/Psychiatric: + disoriented (A&Ox0) Skin: normal color, warm/dry Laboratory Results Last 24 Hours Test 07/04/17 06:51 07/04/17 11:53 White Blood Count 9.60 K/uL Red Blood Count 2.46 M/uL Hemoglobin 7.7 g/dL Hematocrit 24.5 % Mean Corpuscular Volume 99.6 fL Mean Corpuscular Hemoglobin 31.3 pg Mean Corpuscular Hemoglobin Concent 31.4 g/dl RDW Standard Deviation 56.6 fL RDW Coefficient of Variation 15.6 % Platelet Count 160 K/uL Mean Platelet Volume 9.3 fL Assessment and Plan Assessment and Plan: Pt is a 87 yo F who presents for fall on 06/30, denies hitting her head and notes pain on left leg. Femur XR confirm mid diaphyseal fracture of the left femur with pelvis XR and head CT benign. She has medical history significant for cardiac dysarrhythmia, hyperthyroidism, depression and insomnia. She is s/p surgical repair of her femur. Surgery noted BL of 100mL. Her Hgb is currently at 7.7 after 1 transfusion of pRBCs on 07/03. Noted an instance of afib during her surgery which spontaneously resolved into sinus. Currently being monitored on telemetry. UA done the evening of 07/02 shows +leukocyte esterase, pyuria, hematuria, and culture final report shows no bacterial growth. 1. Left mid diaphyseal fracture of femur a. Orthopedic surgery consulting b. Continue PRN IV morphine and PO oxycodone as needed for pain 2. Cardiac Dysrhythmia - noted both as possible SVT or afib/flutter but no note of anticoagulation a. Continue pt's Amiodarone 100mg b. Pt to remain on telemetry due to her episode of SVT c. Consult with cardio about future anticoagulation - may move pt's Lovenox to Coumadin on discharge 3. Hyperthyroidism a. Continue methimazole 5mg BID 4. Depression and Insomnia a. Hold sertraline and mirtazapine 5. Anemia a. Consider transfusing another pack of RBCs depending on Hgb trend 6. DVT prevention a. Lovenox
--- NOTE | 2017-07-04 17:06 | Progress Note ---
Subjective Date of Service: Jul 04, 2017. Subjective this pt is pleasantly confused and having some issues sundowning, she is for rehab but is having issues with post op acute blood loss anemia Problem List Medical Problems: (1) Femur fracture, left Status: Acute (2) Syncope Status: Acute (3) UTI (urinary tract infection) Status: Acute Review of Systems Constitutional: + weakness, + fatigue, No fever, No chills Respiratory: No cough, No shortness of breath Cardiac: No chest pain, No edema Abdomen: No pain, No nausea, No vomiting, No diarrhea Neurologic: + memory loss, + weakness Objective Vital Signs Date Time Temp Pulse Resp B/P (MAP) Pulse Ox O2 Delivery O2 Flow Rate FiO2 07/04/17 16:01 36.5 114 12 110/65 (80) 96 07/04/17 14:31 36.7 110 18 109/61 95 2.0 07/04/17 14:03 37.3 106 18 121/68 93 2.0 07/04/17 13:46 37.0 101 18 96/59 96 2.0 07/04/17 12:25 100 20 98 Nasal Cannula 3.0 07/04/17 12:00 Nasal Cannula 2.0 07/04/17 11:37 36.9 100 18 121/72 (88) 96 Nasal Cannula 07/04/17 08:00 Nasal Cannula 3.0 07/04/17 07:05 36.8 104 24 118/72 (87) 96 Diffusion Mask 4.0 07/04/17 06:40 99 24 120/60 (80) 99 Oxymask 4.0 07/04/17 04:00 Oxymask 4.0 07/04/17 03:54 37.5 100 18 108/66 (80) 99 Oxymask 4.0 07/04/17 00:00 Oxymask 4.0 07/03/17 22:57 37.4 97 18 101/59 (73) 98 Oxymask 4.0 07/03/17 19:00 36.9 90 18 91/56 (68) 100 Nasal Cannula 4.0 Physical Exam General Appearance: WD/WN, + mild distress Neck: supple, no JVD Respiratory/Chest: chest non-tender, lungs clear, normal breath sounds Cardiovascular: no JVD, no murmur Abdomen: soft, no organomegaly Neurologic/Psychiatric: alert, + disoriented Laboratory Results Last 24 Hours Test 07/04/17 06:51 07/04/17 11:53 White Blood Count 9.60 K/uL Red Blood Count 2.46 M/uL Hemoglobin 7.7 g/dL Hematocrit 24.5 % Mean Corpuscular Volume 99.6 fL Mean Corpuscular Hemoglobin 31.3 pg Mean Corpuscular Hemoglobin Concent 31.4 g/dl RDW Standard Deviation 56.6 fL RDW Coefficient of Variation 15.6 % Platelet Count 160 K/uL Mean Platelet Volume 9.3 fL Assessment and Plan 87 f with acute femur fracture and moderate dementia, intra operative and intermittent paroxysmal afib, history of the same Left femoral shaft closed fracture--pain control, and follow advancement to PT per ortho Cardiac dysrhythmia--has both SVT and afib/flutter in chart, no previous discussion of AC,as persistent paf continue monitor for afib in tele post op Continue amiodarone 100 mg by mouth every morning. Hold Aggrenox and potassium chloride., no discussion in past for formal AC, will have post op DVT prevention lovenox but will may consider this may be a good chance to move toward coumadin, has seen nickolas in past acute blood loss anemia secondary to long bone fracture, now acute post op anemia will transfuse 2 units last infused 07/04 Hyperthyroidism- methimazole 5 mg by mouth twice a day. Depression and insomnia-- mirtazapine and sertraline treatment , will have disposition to snf. lovenox for DVT prevention
[2017-07-04] MEDS ORDERED: LIDO/EPINEPHRINE/SOD BICARB 20 ML VIAL INFIL STA (17:21)
--- NOTE | 2017-07-04 18:15 | Procedure Note ---
Procedure Note Date of Service Jul 04, 2017. Procedure Note Procedure note next I was called to evaluate the patient's left dorsal hand she had a skin tear and then an infiltration of an IV causing tissue swelling the skin tear now has deepened and she has uncontrollable bleeding. When I evaluated the patient she was arousable but drowsy there was a boomerang- shaped 4 cm laceration that was full-thickness on the dorsal left hand wound to be approximated with pressure to relieve soft tissue swelling but due to the fragility of her skin did not appear to be amenable to Steri-Strips The area was prepped and draped in a sterile fashion 5 mL of 1% lidocaine with epinephrine were used to anesthetize the wound The wound was approximated with 4-0 nylon a horizontal mattress stitch was applied across the center of the wound with good approximation the additional 2 Ishman tied simple sutures were placed and good wound approximation and hemostasis was achieved achieved. I encouraged the nursing staff to apply a pressure dressing with Vaseline gauze and ice to this hand elevate when possible and will reevaluate in the morning
[2017-07-04] MEDS: DOCUSATE SODIUM/SENNA 50/8.6MG TAB PO SCH (19:58)
[2017-07-04] MEDS: QUETIAPINE FUMARATE 25 MG TAB PO SCH (19:58)
[2017-07-05 04:00] VITALS: BP 104/64; PULSE 94; TEMP 37.5; O2SAT 94
[2017-07-05] MEDS: NSS + 20MEQ KCL 1000ML 1,000 ML IV SCH (05:53)
[2017-07-05 08:14] VITALS: BP 118/69; PULSE 71; TEMP 37.4; O2SAT 99
[2017-07-05] MEDS ORDERED: BISACODYL 10 MG SUPP PR STA (08:23)
--- NOTE | 2017-07-05 08:45 | Cardiology Consultation ---
Cardiology Consultation Date of Consultation: Jul 05, 2017. Requesting Physician: William Reason for Consultation: SVT Pt evaluation today including: conversation w/ patient, physical exam, chart review, lab review, review of studies, conversation w/ attending History of Present Illness The patient is an 79-year-old woman who was admitted to [facility] after sustaining a fall and femur fracture. She underwent operative repair and has been monitored on the obrien in the postoperative period. She has a known history of atrial arrhythmia as he a was noted on telemetry to have brief episodes of tachycardia. The patient suffers from dementia and was not able to give any reliable history. She felt that she was currently in her residence on an [facility]. She did not describe any pain currently. She was not aware of any irregularity in her heartbeat or sense of palpitation. She denies any chest pain. She claims to be ambulatory without any assistive devices. She denies breathing difficulty currently. In addition to her femur fracture the patient is currently being monitored in the postoperative period for significant blood loss anemia. Past Medical/Surgical History Dementia Cerebral vascular disease Hyperthyroidism Hyperlipidemia Osteoporosis Paroxysmal atrial fibrillation SVT Past surgical history Operative repair of hip fracture Family History Noncontributory secondary to age Noncontributory given her advanced age Social History Smoking Status: Unknown if Ever Smoked History of Alcohol Use: No Currently a resident at assisted living Review of Systems Respiratory: No cough, No shortness of breath Cardiac: No chest pain, No edema History is unreliable due to significant dementia. All Other Systems: Reviewed and Negative Allergies Coded Allergies: Amoxicillin (Unverified Allergy, Unknown, ., 07/01/17) Clavulanic Acid (Unverified Allergy, Unknown, ., 07/01/17) Medications Current Inpatient Medications Medications (Trade) Dose Ordered Sig/Bharathi Route Start Time Stop Time Status Last Admin Dose Admin Acetaminophen (Tylenol Tab) 650 mg Q4H PRN PO 07/01/17 00:30 07/31/17 00:29 Amiodarone HCl (Cordarone Tab) 100 mg QAM PO 07/01/17 09:00 07/31/17 08:59 07/03/17 07:34 100 MG Methimazole (Methimazole Tab) 5 mg BID PO 07/01/17 09:00 07/31/17 08:59 07/04/17 07:54 5 MG Acetaminophen 100 ml @ 400 mls/hr Q8H PRN IV 07/01/17 00:30 07/31/17 00:29 07/01/17 04:13 400 MLS/HR Potassium Chloride/Sodium Chloride 1,000 ml @ 80 mls/hr [id number] IV 07/01/17 02:30 07/31/17 02:29 07/05/17 05:53 80 MLS/HR Morphine Sulfate (MoRPHine SULFATE INJ) 2 mg Q2H PRN IV 07/01/17 00:30 07/15/17 00:29 Morphine Sulfate (MoRPHine SULFATE INJ) 4 mg Q2H PRN IV 07/01/17 00:30 07/15/17 00:29 07/03/17 11:43 4 MG Oxycodone HCl (Roxicodone Immediate Rel Tab) 5 mg Q6 PRN PO 07/01/17 12:00 07/15/17 11:59 Enoxaparin Sodium (Lovenox Inj) 40 mg Q24H SQ 07/03/17 09:00 07/31/17 08:59 07/04/17 07:55 40 MG Ondansetron HCl (Zofran Inj) 4 mg Q6H PRN IV 07/02/17 17:00 08/01/17 16:59 Senna/Docusate Sodium (Senokot S Tab) 2 tab HS PO 07/02/17 21:00 08/01/17 20:59 07/03/17 19:15 2 TAB Tramadol HCl (Ultram Tab) 50 mg for pain 1-5 100 mg ... Q4H PRN PO 07/02/17 17:00 08/01/17 16:59 Haloperidol Lactate (Haldol Inj) 2.5 mg Q12H PRN IV 07/03/17 20:15 08/02/17 20:14 07/03/17 20:29 2.5 MG Haloperidol (Haldol Tab) 1 mg Q8H PRN PO 07/03/17 20:15 08/02/17 20:14 Quetiapine Fumarate (seroQUEL TAB) 25 mg HS PO 07/04/17 21:00 08/03/17 20:59 Physical Exam Vital Signs Past 12 Hours Date Time Temp Pulse Resp B/P (MAP) Pulse Ox O2 Delivery O2 Flow Rate FiO2 07/05/17 08:14 37.4 71 18 118/69 (85) 99 07/05/17 04:00 37.5 94 18 104/64 (77) 94 Nasal Cannula 4.0 07/05/17 04:00 Nasal Cannula 4.0 94 07/05/17 00:00 Nasal Cannula 2.0 07/04/17 23:12 36.6 98 16 125/74 (91) 98 Nasal Cannula 2.0 She is alert and oriented x1 (person). Mood affect appear normal. She answered all questions but the answers are often incorrect HEENT: Sclerae are anicteric. Pupils are equal and reactive to light and accommodation. Extraocular movements were intact. No lower teeth Neuro: Cranial nerves intact Neck: Examination of the submandibular region did not reveal any significant lymphadenopathy. Carotids are palpable bilaterally and free of bruits on auscultation. There was no evidence of jugular venous distention. The thyroid was not enlarged. Lungs: Lungs are clear to auscultation bilaterally. There are no rales wheezes or rhonchi. She has normal respiratory effort without use of accessory muscles. There is normal pulmonary excursion. Cardiac: The rhythm was regular. S1 and S2 were normal. There are no murmurs on examination. The PMI was not markedly displaced on palpation. Abdomen: The abdomen was soft and nontender. Extremities: The right radial pulse was normal in intensity. The left hand and wrist was bandaged. SCDs were in place in the lower extremities. Skin: There are no rashes noted on examination today, but she does have multiple ecchymoses. Data Laboratory Results: Last 24 Hours Test 07/04/17 11:53 07/05/17 08:23 Imaging: I reviewed the results of her imaging studies which demonstrated her femur fracture. No acute cardiopulmonary findings. No acute intracranial findings on his CT EKG: I reviewed the source images of her EKGs. Normal sinus rhythm with 1st degree AV block Telemetry reviewed: Primarily sinus rhythm with very brief episodes what appears to be in SVT I reviewed her echocardiogram report from 2013. Normal LV systolic function. Mild mitral regurgitation. Aortic sclerosis without stenosis. Assessment & Plan 1. SVT: I think this is the correct diagnosis for the arrhythmia represented on her monitoring. The episodes themselves are very brief in duration. 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 It does appear to be retrograde P waves with the episodes. They generally last only a few seconds. She is not symptomatic. There is no hemodynamic embarrassment. She had been placed on amiodarone several years ago in order to suppress arrhythmia. She is on a very low dose at this time without evidence of toxicity. I think would be reasonable continue this medication. With respect to anticoagulation, she reportedly had a diagnosis of atrial fibrillation in 2013. At that time she was not felt to be a good candidate for anticoagulation based on her risk of falls and the brief duration of the episodes of atrial fibrillation. I do not think there has been any additional objective findings of atrial fibrillation. She certainly not had any sustained episodes of atrial fibrillation that have been documented. Given her other comorbidities and the lack of objective evidence of atrial fibrillation I would not advocate systemic anticoagulation at this time. This issue can be readdressed if she had documentation of sustained high heart rates consistent with atrial fibrillation. 2. Mitral regurgitation: This was mild in 2014. There is no significant murmur on examination today. I do not think there is any necessity in repeating the echocardiogram of following this over time in the absence of significant change in exam or symptoms.
[2017-07-05] MEDS: METHIMAZOLE 5 MG TAB PO SCH ×2 (09:47→20:19)
[2017-07-05] MEDS: AMIODARONE 200 MG TAB PO SCH (09:47)
[2017-07-05] MEDS: ENOXAPARIN 40 MG/0.4 ML SYR SQ SCH (09:48)
[2017-07-05 10:10] LABS: HEMATOCRIT 26.1 % (37-47); MEAN CELL VOLUME 99.2 fL (80-100); MEAN CORPUSCULAR HEMOGLOBIN 31.2 pg (25-34); MEAN CORPUSCULAR HGB CONC 31.4 g/dl (32-36); MEAN PLATELET VOLUME 8.8 fL (7.4-10.4); PLATELET COUNT 200 K/uL (130-400); RED BLOOD COUNT 2.63 M/uL (4.2-5.4); WHITE BLOOD COUNT 8.54 K/uL (4.8-10.8)
[2017-07-05 10:33] LABS: BLOOD UREA NITROGEN 7 mg/dl (7-18); BUN/CREATININE RATIO 12.8 (10-20); CARBON DIOXIDE 27 mmol/L (21-32); CHLORIDE 108 mmol/L (98-107); CREATININE 0.54 mg/dl (0.60-1.20); GLUCOSE 120 mg/dl (70-99); POTASSIUM 3.8 mmol/L (3.5-5.1); SODIUM 143 mmol/L (136-145)
[2017-07-05 11:29] VITALS: BP 102/63; PULSE 86; TEMP 36.8; O2SAT 90
--- NOTE | 2017-07-05 12:37 | DIAGNOSTIC IMAGING REPORT ---
CHEST ONE VIEW PORTABLE CLINICAL HISTORY: hypoxia, eval for pulmonary edema dyspnea COMPARISON STUDY: 06/30/2017 FINDINGS: Mild stable cardiomegaly. Development of mild congestive heart failure. Probable superimposed consolidative and/or infiltrative change left base. IMPRESSION: Developing congestive failure with a potential superimposed left basilar infiltrate. The above report was generated using voice recognition software. It may contain grammatical, syntax or spelling errors. Electronically signed by: Tulio Hill M.D. 07/05/2017 12:35 PM Dictated Date/Time: 07/05/2017 12:33 PM
[2017-07-05] MEDS ORDERED: POTASSIUM CHLORIDE 10 MEQ TABCR PO ONE (14:00)
[2017-07-05] MEDS ORDERED: FUROSEMIDE INJ 20 MG in SYRINGE 0 ML IV ONE (14:00)
[2017-07-05] MEDS: FERROUS SULFATE 325 MG TAB PO SCH ×2 (14:20→16:45)
[2017-07-05] MEDS ORDERED: BISACODYL 10 MG SUPP ONE (14:29)
--- NOTE | 2017-07-05 15:56 | Orthopedic Progress Note ---
Orthopedic Progress Note Date of Service Jul 05, 2017. Subjective Post OP Day: 2 Additional Notes: Asks me "not to bother her". States doing well for the "time being". Resting in bed, does not open her eyes. Objective calves soft nontender Waggle boots in place bilateral lower extremities. Left hip and knee incisions covered with new dressings, dressings lifted to look at incisions, incisions clean, dry and intact. Mild edema left leg and thigh. No drainage from incisions. Date Time Temp Pulse Resp B/P (MAP) Pulse Ox O2 Delivery O2 Flow Rate FiO2 07/05/17 12:00 Nasal Cannula 4.0 07/05/17 11:29 36.8 86 20 102/63 (76) 90 Nasal Cannula 4.0 07/05/17 08:14 37.4 71 18 118/69 (85) 99 07/05/17 08:00 Nasal Cannula 4.0 07/05/17 04:00 37.5 94 18 104/64 (77) 94 Nasal Cannula 4.0 07/05/17 04:00 Nasal Cannula 4.0 94 07/05/17 00:00 Nasal Cannula 2.0 07/04/17 23:12 36.6 98 16 125/74 (91) 98 Nasal Cannula 2.0 07/04/17 20:11 36.4 100 18 130/72 (91) 93 Nasal Cannula 2.0 07/04/17 20:00 Nasal Cannula 2.0 07/04/17 16:01 36.5 114 12 110/65 (80) 96 07/04/17 16:00 Nasal Cannula 2.0 07/04/17 16:00 36.5 114 20 110/65 96 2.0 Laboratory Results 24 Hours: Test 07/05/17 09:43 Hematocrit 26.1 % Hemoglobin 8.2 g/dL Assessment & Plan Assessment: POD 2 - s/p IM rodding Left femur fracture Plan: Diet as tolerated Needs to remain on bedrest but can use transfer board to get to reclining chair with assistance. Needs to be NWB LLE ROM ankle and knee as tolerated. Unable to do hip ROM due to autofusion. SCD's bilateral lower extremities Ice and elevation as needed for pain/swelling. continue waffle boots, heel precautions, elevated heels off bed Will discuss findings with Dr. Gonzalez Return to [facility] at [facility] upon discharge. Please call [phone] with questions.
[2017-07-05 16:42] VITALS: BP 126/75; PULSE 95; TEMP 36.6; O2SAT 99
[2017-07-05 19:11] VITALS: BP 126/75; PULSE 97; TEMP 36.7; O2SAT 99
[2017-07-05] MEDS: ERGOCALCIFEROL 50,000 INTER.UNIT CAP PO SCH (20:18)
[2017-07-05] MEDS: QUETIAPINE FUMARATE 25 MG TAB PO SCH (20:19)
[2017-07-05] MEDS: DOCUSATE SODIUM/SENNA 50/8.6MG TAB PO SCH (20:20)
--- NOTE | 2017-07-05 21:19 | Progress Note ---
Subjective Date of Service: Jul 05, 2017. Subjective Pt evaluation today including: physical exam, chart review, lab review, review of studies (cxr), review of inpatient medication list Pain: left leg PO Intake: fair according to staff Voiding: langley catheter in place during the visit the patient stated "I didn't have surgery" and she then stated "I'm at home in my bedroom with my parents" no bowel movement documented her entire admission O2 requirement continues tele with occasional brief episodes of SVT unable to obtain ROS due to dementia Problem List Medical Problems: (1) Femur fracture, left Status: Acute (2) Syncope Status: Acute (3) UTI (urinary tract infection) Status: Acute Objective Vital Signs Date Time Temp Pulse Resp B/P (MAP) Pulse Ox O2 Delivery O2 Flow Rate FiO2 07/05/17 19:11 36.7 97 18 126/75 (92) 99 Nasal Cannula 3.0 07/05/17 16:42 36.6 95 18 126/75 (92) 99 Nasal Cannula 4.0 07/05/17 16:00 Nasal Cannula 4.0 07/05/17 12:00 Nasal Cannula 4.0 07/05/17 11:29 36.8 86 20 102/63 (76) 90 Nasal Cannula 4.0 07/05/17 08:14 37.4 71 18 118/69 (85) 99 07/05/17 08:00 Nasal Cannula 4.0 07/05/17 04:00 37.5 94 18 104/64 (77) 94 Nasal Cannula 4.0 07/05/17 04:00 Nasal Cannula 4.0 94 07/05/17 00:00 Nasal Cannula 2.0 07/04/17 23:12 36.6 98 16 125/74 (91) 98 Nasal Cannula 2.0 Physical Exam General Appearance: no apparent distress ENT: pharynx normal Neck: no JVD Respiratory/Chest: no respiratory distress, no accessory muscle use, + rales ( both bases, worse on left ), + wheezing (occasional b/l ) Cardiovascular: regular rate, rhythm, no gallop Abdomen: normal bowel sounds, non tender, soft, no organomegaly Extremities: no pedal edema Neurologic/Psychiatric: alert, + disoriented Skin: + pallor, + pertinent finding (dressings intact left leg) Comments: rectal exam - supervised by nursing staff - external hemorrhoid (internal exam deferred); during my assessment the patient passed a rock-hard moderate stool mixed with scant blood Laboratory Results Last 24 Hours Test 07/05/17 09:43 White Blood Count 8.54 K/uL Red Blood Count 2.63 M/uL Hemoglobin 8.2 g/dL Hematocrit 26.1 % Mean Corpuscular Volume 99.2 fL Mean Corpuscular Hemoglobin 31.2 pg Mean Corpuscular Hemoglobin Concent 31.4 g/dl RDW Standard Deviation 55.6 fL RDW Coefficient of Variation 15.3 % Platelet Count 200 K/uL Mean Platelet Volume 8.8 fL Sodium Level 143 mmol/L Potassium Level 3.8 mmol/L Chloride Level 108 mmol/L Carbon Dioxide Level 27 mmol/L Anion Gap 8.0 mmol/L Blood Urea Nitrogen 7 mg/dl Creatinine 0.54 mg/dl Estimated GFR () 97.6 Estimated GFR (Non- 84.3 BUN/Creatinine Ratio 12.8 Random Glucose 120 mg/dl Calcium Level 8.0 mg/dl 25-Hydroxy Vitamin D Total 15.9 ng/ml Assessment and Plan 87yo female - 1. left femur fx, POD #3 s/p ORIF - stable per ortho. 100% NWB status to left leg. DVT proph - lovenox. 2. hypoxia - likely 2nd to acute diastolic CHF - she is 6+ liters positive since admission. stop IVF. lasix 20mg IV x 1 now. cxr c/w pulm edema. 3. acute blood loss anemia 2nd to #1 above - s/p 2 units PRBCs this admission. start ferrous sulfate BID. 4. severe dementia - noted. 5. SVT - appreciate cardiology consult. Cont amiodarone. No symptoms from such. 6. constipation - dulcolax x 1 not effective but she ultimately did pass a rock -hard BM later. Start bowel regimen with senna + miralax. 7. mild blood per rectum - likely hemorroidal/irritation from #6. 8. DVT proph - lovenox. 9. hyperthyroidism - most recent TSH compensated; cont methimazole. 10. h/o stroke - presumed based on aggrenox use - continue latter. 11. vitamin D def - ergocalciferol 50381 units twice weekly x 8 weeks. Continued [facility] stay due to: multiple IV medications needed Discharge planning: alf facility ([facility])
[2017-07-05 23:33] VITALS: BP 102/68; PULSE 147; TEMP 37; O2SAT 96
[2017-07-06 03:00] VITALS: BP 115/66; PULSE 89; TEMP 36.7; O2SAT 98
[2017-07-06 07:01] LABS: BUN/CREATININE RATIO 18.6 (10-20); CALCIUM 8.2 mg/dl (8.5-10.1); CARBON DIOXIDE 32 mmol/L (21-32); CHLORIDE 102 mmol/L (98-107); CREATININE 0.57 mg/dl (0.60-1.20); GLUCOSE 108 mg/dl (70-99); POTASSIUM 3.5 mmol/L (3.5-5.1); SODIUM 140 mmol/L (136-145)
[2017-07-06 07:17] LABS: BLOOD UREA NITROGEN 11 mg/dl (7-18)
[2017-07-06] MEDS: FERROUS SULFATE 325 MG TAB PO SCH ×2 (07:49→16:48)
[2017-07-06] MEDS: ENOXAPARIN 40 MG/0.4 ML SYR SQ SCH (07:50)
[2017-07-06] MEDS: METHIMAZOLE 5 MG TAB PO SCH ×2 (07:50→20:14)
[2017-07-06] MEDS: POLYETHYLENE (MIRALAX) 17 GM PACK PO SCH (07:50)
[2017-07-06] MEDS: AMIODARONE 200 MG TAB PO SCH (07:53)
[2017-07-06 08:07] VITALS: BP 122/68; PULSE 88; TEMP 37.1; O2SAT 98
[2017-07-06] MEDS ORDERED: FUROSEMIDE INJ 20 MG in SYRINGE 0 ML IV ONE (09:30)
[2017-07-06 11:34] VITALS: BP 115/67; PULSE 94; TEMP 36.6; O2SAT 90
[2017-07-06] MEDS: POTASSIUM CHLORIDE 20 MEQ TABCR PO SCH ×2 (13:47→20:15)
[2017-07-06 15:47] VITALS: BP 108/61; PULSE 105; TEMP 36.7; O2SAT 92
[2017-07-06] MEDS ORDERED: DILTIAZEM BOLUS / DRIP IV STA (17:49)
[2017-07-06] MEDS ORDERED: DILTIAZEM HCL INJ 125 MG in DEXTROSE 5% 100ML IV PRN (18:30)
[2017-07-06 19:10] VITALS: BP 109/66; PULSE 105; TEMP 36.6; O2SAT 98
[2017-07-06] MEDS: DOCUSATE SODIUM/SENNA 50/8.6MG TAB PO SCH (20:14)
[2017-07-06] MEDS: QUETIAPINE FUMARATE 25 MG TAB PO SCH (20:14)
[2017-07-06] MEDS: CEFAZOLIN IV 2,000 MG in SYRINGE 0 ML IV SCH (20:14)
--- NOTE | 2017-07-06 21:10 | Progress Note ---
Subjective Date of Service: Jul 06, 2017. Subjective Pt evaluation today including: physical exam, chart review, lab review, conversation w/ construction safety consultant (orthopedics - Dr. Frias), review of inpatient medication list Pain: left leg with movement PO Intake: fair at best Voiding: langley catheter in place tele with bursts of SVT then, this afternoon, developed what appeared to be rapid a. fib with variable rates from low 100s to 160/170 range asymptomatic today there appeared to be new erythema about the knee joint during the visit today she was awake/alert but confused and could not provide any meaningful information or ROS Problem List Medical Problems: (1) Femur fracture, left Status: Acute (2) Syncope Status: Acute (3) UTI (urinary tract infection) Status: Acute Objective Vital Signs Date Time Temp Pulse Resp B/P (MAP) Pulse Ox O2 Delivery O2 Flow Rate FiO2 07/06/17 19:10 36.6 105 18 109/66 (80) 98 Nasal Cannula 2.0 07/06/17 15:47 36.7 105 16 108/61 (77) 92 Room Air 07/06/17 12:00 Nasal Cannula 2.0 07/06/17 11:34 36.6 94 16 115/67 (83) 90 Room Air 07/06/17 08:07 37.1 88 16 122/68 (86) 98 07/06/17 08:00 Nasal Cannula 2.0 07/06/17 04:20 Nasal Cannula 2.0 07/06/17 03:00 36.7 89 19 115/66 (82) 98 Nasal Cannula 2.0 07/06/17 00:15 Nasal Cannula 2.0 07/05/17 23:33 37.0 147 20 102/68 (79) 96 Nasal Cannula 2.0 Physical Exam General Appearance: no apparent distress ENT: pharynx normal Neck: no JVD Respiratory/Chest: lungs clear, no respiratory distress, no accessory muscle use, + rales (minimal bases) Cardiovascular: regular rate, rhythm (during my first visit today), no gallop, no murmur Abdomen: normal bowel sounds, non tender, soft, no organomegaly Extremities: no pedal edema (right leg; edema/swelling left leg) Neurologic/Psychiatric: alert, + disoriented Skin: + pertinent finding (left leg - peri from recent surgery intact; there is a 4x4 area of irregular erythema from the lower portion of the staple line tracking medially; it is warm to touch; there is ecchymoses about the entire LLE) Laboratory Results Last 24 Hours Test 07/06/17 06:00 Hemoglobin 8.5 g/dL Sodium Level 140 mmol/L Potassium Level 3.5 mmol/L Chloride Level 102 mmol/L Carbon Dioxide Level 32 mmol/L Anion Gap 6.0 mmol/L Blood Urea Nitrogen 11 mg/dl Creatinine 0.57 mg/dl Estimated GFR () 95.9 Estimated GFR (Non- 82.8 BUN/Creatinine Ratio 18.6 Random Glucose 108 mg/dl Calcium Level 8.2 mg/dl Magnesium Level 2.0 mg/dl Assessment and Plan 87yo female - 1. left femur fx, POD #4 s/p ORIF - 100% NWB status to left leg. DVT proph - lovenox. Question of developing cellulitis LLE near the staple line - see below. 2. acute diastolic CHF - improved today with net neg fluid balance. Another dose of lasix. wean O2 off as tolerated. 3. acute blood loss anemia 2nd to #1 above - s/p 2 units PRBCs this admission. started ferrous sulfate BID. Hb stable today. 4. severe dementia - noted. 5. runs of SVT - appreciate cardiology consult. Cont amiodarone. 6. constipation - resolved. Bowel regimen. 7. mild blood per rectum - likely hemorroidal/irritation from #6. 8. DVT proph - lovenox. 9. hyperthyroidism - most recent TSH compensated; cont methimazole. 10. h/o stroke - presumed based on aggrenox use - continue latter. 11. vitamin D def - ergocalciferol 80304 units twice weekly x 8 weeks. 12. a. fib with RVR - history of such in 2013. Started on cardizem infusion. Hopefully she will spontaneously convert back to NSR overnight. No symptoms from such at this time. K/Mag/TSH all wnl. 13. possible developing cellulitis, LLE - spoke with ortho - will start ancef 2gm IV q8h. Follow. Leading edges demarcated today. attempted to call contact in chart - no answer, left message Continued [facility] stay due to: multiple IV medications needed, other (a fib, cellulitis ) Discharge planning: care home facility ([facility])
[2017-07-06 23:07] VITALS: BP 130/78; PULSE 140; TEMP 37.1; O2SAT 97
[2017-07-07 03:31] VITALS: BP 109/70; PULSE 81; TEMP 37.3; O2SAT 98
[2017-07-07] MEDS: CEFAZOLIN IV 2,000 MG in SYRINGE 0 ML IV SCH ×3 (04:18→20:23)
[2017-07-07 06:24] LABS: BLOOD UREA NITROGEN 16 mg/dl (7-18); BUN/CREATININE RATIO 21.1 (10-20); CALCIUM 8.2 mg/dl (8.5-10.1); CARBON DIOXIDE 33 mmol/L (21-32); CHLORIDE 104 mmol/L (98-107); CREATININE 0.74 mg/dl (0.60-1.20); GLUCOSE 128 mg/dl (70-99); MAGNESIUM 2.1 mg/dl (1.8-2.4); POTASSIUM 3.3 mmol/L (3.5-5.1); SODIUM 142 mmol/L (136-145)
[2017-07-07] MEDS ORDERED: POTASSIUM CHLORIDE 10 MEQ TABCR PO STA (08:01)
[2017-07-07] MEDS: ENOXAPARIN 40 MG/0.4 ML SYR SQ SCH (08:03)
[2017-07-07] MEDS: POTASSIUM CHLORIDE 20 MEQ TABCR PO SCH ×2 (08:03→20:24)
[2017-07-07] MEDS: METHIMAZOLE 5 MG TAB PO SCH ×2 (08:03→20:25)
[2017-07-07] MEDS: AMIODARONE 200 MG TAB PO SCH ×2 (08:04→20:25)
[2017-07-07] MEDS: FERROUS SULFATE 325 MG TAB PO SCH ×2 (08:04→16:57)
[2017-07-07] MEDS: POLYETHYLENE (MIRALAX) 17 GM PACK PO SCH (08:08)
[2017-07-07 08:21] VITALS: BP 115/74; PULSE 68; O2SAT 98
[2017-07-07] MEDS ORDERED: AMIODARONE 200 MG TAB PO ONE (09:30)
--- NOTE | 2017-07-07 10:34 | Progress Note ---
Subjective Date of Service: Jul 07, 2017. Subjective Pt evaluation today including: physical exam, chart review, lab review, review of inpatient medication list Pain: none obvious this am PO Intake: fairly good per staff Voiding: incontinence broke from a. fib to NSR in the middle of the night HR/BP stable since staff note that during sleep she desats to upper 80s; during awake times O2 sats are normal NC O2 applied during sleep she is pleasantly confused this am no meaningful ROS or history could be obtained from her this am Problem List Medical Problems: (1) Femur fracture, left Status: Acute (2) Syncope Status: Acute (3) UTI (urinary tract infection) Status: Acute Objective Vital Signs Date Time Temp Pulse Resp B/P (MAP) Pulse Ox O2 Delivery O2 Flow Rate FiO2 07/07/17 08:21 68 18 115/74 (88) 98 Nasal Cannula 3.0 07/07/17 08:00 Nasal Cannula 2.0 07/07/17 04:00 Nasal Cannula 2.0 07/07/17 03:31 37.3 81 19 109/70 (83) 98 Nasal Cannula 2.0 07/06/17 23:59 Nasal Cannula 2.0 07/06/17 23:07 37.1 140 20 130/78 (95) 97 Nasal Cannula 2.0 07/06/17 20:00 Nasal Cannula 2.0 07/06/17 19:10 36.6 105 18 109/66 (80) 98 Nasal Cannula 2.0 07/06/17 15:47 36.7 105 16 108/61 (77) 92 Room Air 07/06/17 12:00 Nasal Cannula 2.0 07/06/17 11:34 36.6 94 16 115/67 (83) 90 Room Air Physical Exam General Appearance: no apparent distress ENT: + pertinent finding (MM slightly dry) Neck: no JVD Respiratory/Chest: no respiratory distress, no accessory muscle use, + rales ( "dry" - both bases but a little worse on left) Cardiovascular: regular rate, rhythm, no gallop, no murmur Abdomen: normal bowel sounds, non tender, soft, no organomegaly Extremities: + pedal edema (left foot/ankle - trace to 1+; left thigh swelling) Neurologic/Psychiatric: alert, + disoriented Skin: + pertinent finding (skin tear, left elbow region - stable, no weeping or erythema; left hand (dorsum) sutures intact, no erythema or cellulitis; peri in 3 locations over left leg - stable; probable cellulitis at inferior portion of staple line near the knee - modestly better today; ecchymoses throughout the left leg) Laboratory Results Last 24 Hours Test 07/07/17 05:28 Sodium Level 142 mmol/L Potassium Level 3.3 mmol/L Chloride Level 104 mmol/L Carbon Dioxide Level 33 mmol/L Anion Gap 5.0 mmol/L Blood Urea Nitrogen 16 mg/dl Creatinine 0.74 mg/dl Estimated GFR () 83.8 Estimated GFR (Non- 72.3 BUN/Creatinine Ratio 21.1 Random Glucose 128 mg/dl Calcium Level 8.2 mg/dl Magnesium Level 2.1 mg/dl Assessment and Plan 87yo female - 1. left femur fx, POD #5 s/p ORIF - 100% NWB status to left leg. DVT proph - lovenox. 2. acute diastolic CHF - suspect euvolemic or even slightly volume depleted today. No further lasix at this time. 3. acute blood loss anemia 2nd to #1 above - s/p 2 units PRBCs this admission. ferrous sulfate BID. Hb again in the AM. 4. severe dementia - baseline. 5. runs of SVT - appreciate cardiology consult. Cont amiodarone. See below. 6. constipation - resolved. Bowel regimen. 7. mild blood per rectum - has not recurred. Was likely from irritation in setting of severe constipation. 8. DVT proph - lovenox. 9. hyperthyroidism - most recent TSH compensated; cont methimazole. 10. h/o stroke - presumed based on aggrenox use - continue latter. 11. vitamin D def - ergocalciferol 29108 units twice weekly x 8 weeks. 12. a. fib with RVR - history of such in 2013. Spontaneously converted back to NSR overnight. Spoke with Dr. Oshea. Will increase amiodarone to 200mg BID x 7 days, then 200mg once daily thereafter. Replace K. leave on telemetry. stop cardizem drip. 13. cellulitis, LLE - day #2 ancef 2gm IV q8h. Modestly improved today. Orthopedics is aware and will eval. 14. skin tear, left hand, s/p suture repair - sutures intact, no superimposed infection. Sutures placed by Dr. Thomas on 07/04. Sutures should be removed in about 7-10 days. 15. hypoxia during sleep - could have central apnea from her dementia. Continue NC O2 with sleep. 16. hypokalemia - replace, repeat K in am. attempted to call contact in chart on 07/06/17 - no answer, left message Continued [facility] stay due to: other (a fib, cellulitis ) Discharge planning: halfway facility ([facility])
[2017-07-07 12:21] VITALS: BP 112/70; PULSE 79; TEMP 36.7; O2SAT 94
[2017-07-07 15:12] VITALS: BP 115/72; PULSE 76; TEMP 36.6; O2SAT 100
[2017-07-07 19:07] VITALS: BP 109/66; PULSE 75; TEMP 36.5; O2SAT 100
[2017-07-07] MEDS: QUETIAPINE FUMARATE 25 MG TAB PO SCH (20:24)
[2017-07-07] MEDS: DOCUSATE SODIUM/SENNA 50/8.6MG TAB PO SCH (20:24)
[2017-07-07 23:05] VITALS: BP 91/49; PULSE 77; TEMP 36.7; O2SAT 98
[2017-07-08] VITALS (8 sets, daily range): BP systolic 102–144; BP diastolic 62–80; PULSE 73–80; TEMP 36.5–37.2; O2SAT 94–100
[2017-07-08] MEDS: CEFAZOLIN IV 2,000 MG in SYRINGE 0 ML IV SCH ×2 (04:18→12:13)
[2017-07-08 06:48] LABS: MEAN CELL VOLUME 100.8 fL (80-100); MEAN CORPUSCULAR HEMOGLOBIN 31.4 pg (25-34); MEAN CORPUSCULAR HGB CONC 31.2 g/dl (32-36); MEAN PLATELET VOLUME 8.7 fL (7.4-10.4); PLATELET COUNT 266 K/uL (130-400); RED BLOOD COUNT 2.58 M/uL (4.2-5.4); WHITE BLOOD COUNT 7.87 K/uL (4.8-10.8)
[2017-07-08 07:20] LABS: BLOOD UREA NITROGEN 16 mg/dl (7-18); BUN/CREATININE RATIO 22.3 (10-20); CALCIUM 8.4 mg/dl (8.5-10.1); CARBON DIOXIDE 32 mmol/L (21-32); CHLORIDE 105 mmol/L (98-107); GLUCOSE 114 mg/dl (70-99); MAGNESIUM 2.2 mg/dl (1.8-2.4); POTASSIUM 4.1 mmol/L (3.5-5.1); SODIUM 144 mmol/L (136-145)
[2017-07-08] MEDS: POLYETHYLENE (MIRALAX) 17 GM PACK PO SCH (09:00)
[2017-07-08] MEDS: METHIMAZOLE 5 MG TAB PO SCH ×2 (10:32→22:00)
[2017-07-08] MEDS: FERROUS SULFATE 325 MG TAB PO SCH ×2 (10:32→18:20)
[2017-07-08] MEDS: AMIODARONE 200 MG TAB PO SCH ×2 (10:32→22:00)
[2017-07-08] MEDS: POTASSIUM CHLORIDE 20 MEQ TABCR PO SCH ×2 (10:33→21:03)
[2017-07-08] MEDS: ENOXAPARIN 40 MG/0.4 ML SYR SQ SCH (10:34)
--- NOTE | 2017-07-08 14:41 | Progress Note ---
Subjective Date of Service: Jul 08, 2017. Subjective Pt evaluation today including: conversation w/ patient, physical exam, lab review, review of inpatient medication list Pain: denies pain PO Intake: adequate Voiding: no voiding problems patient pleasant, conversive, but overall confused reviewed labs, reviewed telemetry today Problem List Medical Problems: (1) Femur fracture, left Status: Acute (2) Syncope Status: Acute (3) UTI (urinary tract infection) Status: Acute Review of Systems cannot perform ROS due to dementia Medications Current Inpatient Medications Medications (Trade) Dose Ordered Sig/Bharathi Route Start Time Stop Time Status Last Admin Dose Admin Acetaminophen (Tylenol Tab) 650 mg Q4H PRN PO 07/01/17 00:30 07/31/17 00:29 Methimazole (Methimazole Tab) 5 mg BID PO 07/01/17 09:00 07/31/17 08:59 07/08/17 10:32 5 MG Morphine Sulfate (MoRPHine SULFATE INJ) 2 mg Q2H PRN IV 07/01/17 00:30 07/15/17 00:29 Morphine Sulfate (MoRPHine SULFATE INJ) 4 mg Q2H PRN IV 07/01/17 00:30 07/15/17 00:29 07/03/17 11:43 4 MG Oxycodone HCl (Roxicodone Immediate Rel Tab) 5 mg Q6 PRN PO 07/01/17 12:00 07/15/17 11:59 Enoxaparin Sodium (Lovenox Inj) 40 mg Q24H SQ 07/03/17 09:00 07/31/17 08:59 07/08/17 10:34 40 MG Ondansetron HCl (Zofran Inj) 4 mg Q6H PRN IV 07/02/17 17:00 08/01/17 16:59 Senna/Docusate Sodium (Senokot S Tab) 2 tab HS PO 07/02/17 21:00 08/01/17 20:59 07/07/17 20:24 2 TAB Tramadol HCl (Ultram Tab) 50 mg for pain 1-5 100 mg ... Q4H PRN PO 07/02/17 17:00 08/01/17 16:59 Haloperidol (Haldol Tab) 1 mg Q8H PRN PO 07/03/17 20:15 08/02/17 20:14 Quetiapine Fumarate (seroQUEL TAB) 25 mg HS PO 07/04/17 21:00 08/03/17 20:59 07/07/17 20:24 25 MG Ferrous Sulfate (Feosol Tab) 325 mg BIDM PO 07/05/17 11:30 12 11:29 07/08/17 10:32 325 MG Ergocalciferol (Vitamin D Cap) 50,000 interunit MoFr@2100 PO 07/05/17 21:00 08/04/17 20:59 07/05/17 20:18 50,000 INTERUNIT Polyethylene (Miralax Powder Packet) 17 gm DAILY PO 07/06/17 09:00 08/05/17 08:59 07/06/17 07:50 17 GM Potassium Chloride (Klor-Con Tab) 20 meq BID PO 07/06/17 09:00 08/05/17 08:59 07/08/17 10:33 20 MEQ Cefazolin Sodium 2000 mg/Syringe 10 ml @ 2.5 mls/min Q8H IV 07/06/17 20:00 07/16/17 19:59 07/08/17 12:13 2.5 MLS/MIN Amiodarone HCl (Cordarone Tab) 200 mg BID PO 07/07/17 21:00 07/31/17 08:59 07/08/17 10:32 200 MG Objective Vital Signs Date Time Temp Pulse Resp B/P (MAP) Pulse Ox O2 Delivery O2 Flow Rate FiO2 07/08/17 13:30 Nasal Cannula 4.0 07/08/17 13:14 37.1 76 18 102/64 (77) 100 07/08/17 12:07 37.2 73 18 144/80 (101) 100 Nasal Cannula 07/08/17 11:25 37.2 77 20 100 07/08/17 08:00 Nasal Cannula 2.0 07/08/17 07:52 36.5 73 16 112/71 (85) 100 07/08/17 04:00 Nasal Cannula 2.0 07/08/17 03:56 36.5 80 20 116/62 (80) 98 Nasal Cannula 3.0 07/07/17 23:59 Nasal Cannula 2.0 07/07/17 23:05 36.7 77 19 91/49 (63) 98 Nasal Cannula 3.0 07/07/17 20:00 Nasal Cannula 2.0 07/07/17 19:07 36.5 75 18 109/66 (80) 100 Nasal Cannula 3.0 07/07/17 16:00 Nasal Cannula 2.0 07/07/17 15:12 36.6 76 18 115/72 (86) 100 Nasal Cannula 3.0 Physical Exam General Appearance: WD/WN, no apparent distress Eyes: normal inspection, EOMI, sclerae normal Neck: supple, no adenopathy, no JVD, trachea midline Respiratory/Chest: chest non-tender, lungs clear, normal breath sounds, no respiratory distress, no accessory muscle use Cardiovascular: regular rate, rhythm, no edema, no gallop, no JVD, no murmur Abdomen: normal bowel sounds, non tender, soft, no organomegaly Extremities: normal inspection, no pedal edema, no calf tenderness, pelvis stable, + pertinent finding (hip tender, decreased ROM) Neurologic/Psychiatric: recovery advocate II-XII nml as tested, alert, normal mood/affect, + motor weakness, + disoriented Skin: normal color, warm/dry, no rash Laboratory Results Last 24 Hours Test 07/08/17 06:20 White Blood Count 7.87 K/uL Red Blood Count 2.58 M/uL Hemoglobin 8.1 g/dL Hematocrit 26.0 % Mean Corpuscular Volume 100.8 fL Mean Corpuscular Hemoglobin 31.4 pg Mean Corpuscular Hemoglobin Concent 31.2 g/dl RDW Standard Deviation 53.9 fL RDW Coefficient of Variation 14.9 % Platelet Count 266 K/uL Mean Platelet Volume 8.7 fL Nucleated RBC Absolute Count (auto) 0.03 K/uL Nucleated Red Blood Cells % 0.4 % Sodium Level 144 mmol/L Potassium Level 4.1 mmol/L Chloride Level 105 mmol/L Carbon Dioxide Level 32 mmol/L Anion Gap 8.0 mmol/L Blood Urea Nitrogen 16 mg/dl Creatinine 0.70 mg/dl Estimated GFR () 89.7 Estimated GFR (Non- 77.4 BUN/Creatinine Ratio 22.3 Random Glucose 114 mg/dl Calcium Level 8.4 mg/dl Magnesium Level 2.2 mg/dl Assessment and Plan 87yo female - 1. left femur fx, POD #6 s/p ORIF - 100% NWB status to left leg. DVT proph - lovenox. 2. acute diastolic CHF - acute component resolved, euvolemic today 3. acute blood loss anemia 2nd to #1 above - s/p 2 units PRBCs this admission. ferrous sulfate BID. Hb 8.1 today from 8.5 yesterday, no need for transfusion, continue to follow 4. severe dementia - baseline. 5. runs of SVT - appreciate cardiology consult. Cont amiodarone 200mg BID x 1 week 6. constipation - resolved. Bowel regimen. 7. mild blood per rectum - has not recurred. Was likely from irritation in setting of severe constipation. 8. DVT proph - lovenox. 9. hyperthyroidism - most recent TSH compensated; cont methimazole. 10. h/o stroke - presumed based on aggrenox use - continue latter. 11. vitamin D def - ergocalciferol 59813 units twice weekly x 8 weeks. 12. a. fib with RVR - history of such in 2013. Spontaneously converted back to NSR overnight on 06/05 Will increase amiodarone to 200mg BID x 7 days, then 200mg once daily thereafter. reviewed tele, remained in NSR since conversion, d/c cardizem and transfer to medical floor today 13. cellulitis, LLE - day #3 ancef 2gm IV q8h. Modestly improved today. Orthopedics is aware and will eval. 14. skin tear, left hand, s/p suture repair - sutures intact, no superimposed infection. Sutures placed by Dr. Thomas on 07/04. Sutures should be removed in about on 07/11 15. hypoxia during sleep - could have central apnea from her dementia. Continue NC O2 with sleep. 16. hypokalemia - K is 4.1 today, repeat tomorrow transfer to medical floor, PT/OT, will return to [facility] once medically stable Continued [facility] stay due to: other (a fib, cellulitis ) [facility]
--- NOTE | 2017-07-08 15:34 | Orthopedic Progress Note ---
Orthopedic Progress Note Date of Service Jul 08, 2017. Subjective Post OP Day: 6 Additional Notes: Sleeping in bed, did not awaken. Objective Left thigh with ecchymosis anteriorly and laterally. [place] intact. Mild erythema around peri on anterior knee, most likely from staple reaction. [place] retained, skin edges approximated. Distal dorsalis pedis pulse 1+. Distal edema. Date Time Temp Pulse Resp B/P (MAP) Pulse Ox O2 Delivery O2 Flow Rate FiO2 07/08/17 15:05 36.7 76 18 124/74 (91) 100 Nasal Cannula 4.0 07/08/17 13:30 Nasal Cannula 4.0 07/08/17 13:14 37.1 76 18 102/64 (77) 100 07/08/17 12:07 37.2 73 18 144/80 (101) 100 Nasal Cannula 07/08/17 11:25 37.2 77 20 100 07/08/17 08:00 Nasal Cannula 2.0 07/08/17 07:52 36.5 73 16 112/71 (85) 100 07/08/17 04:00 Nasal Cannula 2.0 07/08/17 03:56 36.5 80 20 116/62 (80) 98 Nasal Cannula 3.0 07/07/17 23:59 Nasal Cannula 2.0 07/07/17 23:05 36.7 77 19 91/49 (63) 98 Nasal Cannula 3.0 07/07/17 20:00 Nasal Cannula 2.0 07/07/17 19:07 36.5 75 18 109/66 (80) 100 Nasal Cannula 3.0 07/07/17 16:00 Nasal Cannula 2.0 Laboratory Results 24 Hours: Test 07/08/17 06:20 Hematocrit 26.0 % Hemoglobin 8.1 g/dL Assessment & Plan Assessment: POD 6 - s/p IM rodding Left midshaft femur fracture Plan: H/H monitored by medicine but stable. erythema left knee unlikely cellulitis, discussed with Dr. Earl, discontinued IV antibiotics. Diet as tolerated Needs to remain on bedrest but can use transfer board to get to reclining chair with assistance. Needs to be NWB LLE ROM ankle and knee as tolerated. Unable to do hip ROM due to autofusion. SCD's bilateral lower extremities Ice and elevation as needed for pain/swelling. continue waffle boots, heel precautions, elevated heels off bed Dr. Gonzalez present for visit today. Return to [facility] upon discharge. Follow up next week as scheduled. Please call [phone] with questions.
[2017-07-08] MEDS: ERGOCALCIFEROL 50,000 INTER.UNIT CAP PO SCH (21:02)
[2017-07-08] MEDS: DOCUSATE SODIUM/SENNA 50/8.6MG TAB PO SCH (21:04)
[2017-07-08] MEDS: QUETIAPINE FUMARATE 25 MG TAB PO SCH (21:57)
[2017-07-09 06:24] LABS: BASO % 0.2 %; BASO ABS # 0.02 K/uL (0-0.2); EOS % 2.4 %; HEMATOCRIT 27.8 % (37-47); IG% 0.7 %; LYMPH % 21.8 %; LYMPH ABS # 1.83 K/uL (1.2-3.4); MEAN CELL VOLUME 102.2 fL (80-100); MEAN CORPUSCULAR HEMOGLOBIN 31.3 pg (25-34); MEAN CORPUSCULAR HGB CONC 30.6 g/dl (32-36); MEAN PLATELET VOLUME 8.7 fL (7.4-10.4); MONO % 8.9 %; PLATELET COUNT 304 K/uL (130-400); RED BLOOD COUNT 2.72 M/uL (4.2-5.4)
[2017-07-09 06:48] LABS: COMPLETE YES; HYPERSEGMENTED POLYS 1+; POLYCHROMASIA 1+
[2017-07-09 07:04] LABS: BLOOD UREA NITROGEN 14 mg/dl (7-18); BUN/CREATININE RATIO 21.2 (10-20); CALCIUM 8.5 mg/dl (8.5-10.1); CARBON DIOXIDE 30 mmol/L (21-32); CHLORIDE 103 mmol/L (98-107); CREATININE 0.66 mg/dl (0.60-1.20); GLUCOSE 106 mg/dl (70-99); POTASSIUM 4.1 mmol/L (3.5-5.1); SODIUM 140 mmol/L (136-145)
[2017-07-09 08:25] VITALS: BP 111/72; PULSE 76; TEMP 36.7; O2SAT 94
[2017-07-09] MEDS: FERROUS SULFATE 325 MG TAB PO SCH (08:50)
[2017-07-09] MEDS: AMIODARONE 200 MG TAB PO SCH (08:51)
[2017-07-09] MEDS: POLYETHYLENE (MIRALAX) 17 GM PACK PO SCH (08:51)
[2017-07-09] MEDS: METHIMAZOLE 5 MG TAB PO SCH (08:53)
[2017-07-09] MEDS: ENOXAPARIN 40 MG/0.4 ML SYR SQ SCH (08:53)
[2017-07-09] MEDS: POTASSIUM CHLORIDE 20 MEQ TABCR PO SCH (09:00)
[2017-07-09] MEDS ORDERED: CRD200 PO (11:24)
[2017-07-09] MEDS ORDERED: LVNIS40 SQ (11:24)
[2017-07-09] MEDS ORDERED: MRLP17 PO (11:24)
[2017-07-09] MEDS ORDERED: RXC5 PO (11:24)
--- NOTE | 2017-07-09 11:35 | Discharge Instructions ---
Discharge Instructions Date of Service Jul 09, 2017. Admission Reason for Admission: Closed Left Femoral Fracture Discharge Discharge Diagnosis / Problem: Closed left femoral fracture, atrial fibrillation (paroxysmal), dementia Discharge Goals Goal(s): Decrease discomfort, Improve function Activity Recommendations Activity Level: Bedrest (strict bedrest until cleared by orthopedics) Therapies: Weight Bearing Status (non-weight bearing on left leg) Weightbearing Status: Left non-weightbearing Lifting Limitations: until after follow-up appointment Exercise/Sports Limitations: until after follow-up appointment Shower/Bathe: keep incision dry . Additional Information Patient informed of condition: Yes Advance Directives: Yes DNR: Yes Level of Care: Skilled Communicable Disease: No Prognosis: Stable Oxygen at (LPM): 2 liters Rankin Catheter: No Instructions / Follow-Up Instructions / Follow-Up Medications: - AMIODARONE: 200mg twice a day for 4 more days then 200mg daily, keep at this dose going forward to keep patient out of atrial fibrillation/SVT - MIRALAX: take daily to keep bowels regular, especially while on Oxycodone for pain, if stools are loose, back off to once every other day - OXYCODONE: take as needed for left hip pain - LOXENOX: take daily for the next 30 days for DVT prophylaxis post op Left closed hip fracture: POD #7, pain is controlled, patient is strict non- weight bearing on left leg until advanced by orthopedic surgery please follow up in office with Dr. Muñoz on 07/16, call [phone] Left hand laceration: sutures can be removed on or after 07/11 Atrial fibrillation, paroxysmal: returned to normal sinus rhythm using Amiodarone, Dr. Oshea with cardiology recommends 200mg BID for 4 more days ( week total) then 200mg daily follow up with cardiology in a few weeks Post op anemia: required 2 units of blood, Hb has been stable for 4 days, 8.5 today, was 8.1 yesterday FOLLOW UP - physician at [facility] this week - Dr. Muñoz on 07/16/17 for post op follow up and staple removal - [facility] cardiology in 4 weeks, call [phone] for appointment Current Hospital Diet Patient's current hospital diet: Regular Diet Discharge Diet Recommended Diet: Regular Diet Procedures Procedures Performed: Closed reduction and Placement of Intramedullary Josh Femur Retrograde Pending Studies Studies pending at discharge: no Physician Orders On Transfer Additional Orders: check BMP and CBC on 07/15 POL Discussion: Not Applicable Medical Emergencies . Who to Call and When: Medical Emergencies: If at any time you feel your situation is an emergency, please call 911 immediately. . Non-Emergent Contact Non-Emergency issues call your: Primary Care Provider, Store Operations Manager, Surgeon Call Non-Emergent contact if: you have a fever, your pain is not controlled, your pain is worsening, you have any medication questions . . "Provider Documentation" section prepared by Vaibhav Earl. . Bottom Worker Recommendations Bottom Worker Recommendations: Non weight bearing left lower extremity Bedrest but allowed to be out of bed to chair with assistance of transfer board No ambulation Heel precautions; elevate heels off bed. Dressings to left knee and thigh at all times; may change daily and PRN. Elevate left lower extremity as needed for swelling Ice to left knee/thigh as needed for pain/swelling. You have a follow up appointment scheduled with Dr. Muñoz on 07/17/17 at 12: 45 p.m.. Please call [phone] with problems or questions or need to reschedule appointment. Core Measure Problem Core Measures: None [place] Drug Monitoring Program Search Results: no issues identified
[2017-07-09 13:04] VITALS: BP 111/72; PULSE 76; TEMP 36.7
[2017-07-09 13:18] VITALS: O2SAT 91
--- NOTE | 2017-07-09 13:31 | Orthopedic Progress Note ---
Orthopedic Progress Note Date of Service Jul 09, 2017. Subjective Post OP Day: 7 Reports: feeling well, Denies: complaints Additional Notes: Sitting up, eating lunch Objective incision C/D/I Doesn't follow commands. Mild erythema around anterior knee incision, improved , no drainage, minimal warmth but expected after surgery. Resolving ecchymosis left thigh. Date Time Temp Pulse Resp B/P (MAP) Pulse Ox O2 Delivery O2 Flow Rate FiO2 07/09/17 13:18 91 Room Air 07/09/17 13:04 36.7 76 18 94 Nasal Cannula 07/09/17 08:25 36.7 76 18 111/72 (85) 94 Nasal Cannula 2.0 07/09/17 07:35 Nasal Cannula 2.0 07/08/17 23:15 94 Nasal Cannula 2.0 07/08/17 23:03 36.8 79 16 107/63 (78) 95 Nasal Cannula 3.0 07/08/17 15:35 Nasal Cannula 4.0 07/08/17 15:05 36.7 76 18 124/74 (91) 100 Nasal Cannula 4.0 07/08/17 13:30 Nasal Cannula 4.0 Laboratory Results 24 Hours: Test 07/09/17 05:51 White Blood Count 8.40 K/uL Red Blood Count 2.72 M/uL Hemoglobin 8.5 g/dL Hematocrit 27.8 % Mean Corpuscular Volume 102.2 fL Mean Corpuscular Hemoglobin 31.3 pg Mean Corpuscular Hemoglobin Concent 30.6 g/dl Platelet Count 304 K/uL Mean Platelet Volume 8.7 fL Neutrophils (%) (Auto) 66.0 % Lymphocytes (%) (Auto) 21.8 % Monocytes (%) (Auto) 8.9 % Eosinophils (%) (Auto) 2.4 % Basophils (%) (Auto) 0.2 % Neutrophils # (Auto) 5.54 K/uL Lymphocytes # (Auto) 1.83 K/uL Monocytes # (Auto) 0.75 K/uL Eosinophils # (Auto) 0.20 K/uL Basophils # (Auto) 0.02 K/uL Assessment & Plan Assessment: POD 7 - s/p IM rodding Left midshaft femur fracture Plan: H/H monitored by medicine but stable - s/p 2 transfusions during this hospital stay. No need for further transfusions. Erythema left knee improved - antibiotics stopped yesterday Diet as tolerated Needs to remain on bedrest but can use transfer board to get to reclining chair with assistance. Needs to be NWB LLE ROM ankle and knee as tolerated. Unable to do hip ROM due to autofusion. SCD's bilateral lower extremities Ice and elevation as needed for pain/swelling. continue waffle boots, heel precautions, elevated heels off bed Will discuss findings with Dr. Gonzalez. [facility] today. Follow up next week as scheduled. Please call [phone] with questions.
--- NOTE | 2017-07-10 08:55 | Discharge Summary ---
Discharge Summary Date of Service Jul 09, 2017. Discharge Summary Admission Date: Jul 01, 2017 at 00:18 Discharge Date: Jul 09, 2017 Discharge Disposition: group home facility Principal Diagnosis: Left hip fracture, closed, s/p ORIF Problems/Secondary Diagnoses: Acute blood loss anemia from surgery Acute diastolic HF, resolved Atrial fibrillation/SVT Dementia Immunizations: Have You Had Influenza Vaccine: Unknown History of Tetanus Vaccine?: Unknown History of Pneumococcal: Unknown History of Hepatitis B Vaccine: Unknown Procedures: ORIF left hip Consultations: Orthopedic surgery Cardiology Hyperthyroidism Medication Reconciliation New Medications: Amiodarone HCl (Amiodarone HCl) 200 Mg Tab 200 MG PO BID for 30 Days, #60 TAB 3 Refills 200mg twice a day for 4 more days then 200mg daily Enoxaparin (Enoxaparin Sodium) 40 Mg/0.4 Ml Inj 40 MG SQ Q24H for 30 Days, #30 DOSE 0 Refills Oxycodone HCl (Oxycodone HCl) 5 Mg Tab 5 MG PO Q6 PRN for Pain, #30 TAB 0 Refills Polyethylene (Miralax) 17 Gm Pow 17 GM PO DAILY, #1 BTL 3 Refills Continued Medications: Albuterol Sulf (Albuterol Sulfate 0.083% For Inh) 3 Ml Nebu 3 ML INH Q4 PRN for SOB/Wheezing Cholecalciferol (Just D) 400 Unit/Ml Liq 5 ML PO QAM Dipyridamole/Aspirin (Aggrenox 25-200 mg) 1 Cap Cap 1 CAP PO Q12 Docusate Sodium (Colace) 100 Mg Cap 100 MG PO QAM Methimazole (Methimazole ) 5 Mg Tab 5 MG PO BID Mirtazapine (Mirtazapine) 7.5 Mg Tab 7.5 MG PO HS, #28 Potassium Chloride (Potassium Chloride) 10 % Liq 15 ML PO QAM 20MEQ/15ML Sennosides (Senexon) 8.6 Mg Tab 8.6 MG PO BID Sertraline Hcl (Sertraline Hcl) 20 Mg/Ml Con 3.75 ML PO DAILY Discontinued Medications: Amiodarone Hcl (Pacerone) 200 Mg Tab 100 MG PO QAM, TAB Discharge Exam Patient resting in bed, no distress, breathing well, eating well according to RN. Patient is on oral medications, vitals stable, could return to SNF since she is on bedrest. Review of Systems: Constitutional: + problem reported (cannot complete full ROS due to dementia ) Physical Exam: General Appearance: WD/WN, no apparent distress Eyes: normal inspection, EOMI, sclerae normal Neck: supple, no adenopathy, no JVD, trachea midline Respiratory/Chest: chest non-tender, lungs clear, no respiratory distress, no accessory muscle use, + decreased breath sounds (bases) Cardiovascular: regular rate, rhythm, no edema, no gallop, no JVD, no murmur , normal peripheral pulses Abdomen / GI: normal bowel sounds, non tender, soft, no organomegaly Extremities: no calf tenderness, normal capillary refill, no pedal edema, pelvis stable, + pertinent finding (left hip, no ROM due to pain, recent fracture and surgery) Neurologic/Psychiatric: vision teacher II-XII nml as tested, alert, + motor weakness, + depressed affect, + disoriented Skin: normal color, warm/dry, no rash, + pertinent finding (left hand laceration, wound clean, no cellulitis) Lymphatic: no adenopathy Hospital Course 87yo female - 1. left femur fx, POD #7 s/p ORIF - 100% NWB status to left leg. DVT proph - Lovenox daily for one month 2. acute diastolic CHF - acute component resolved, euvolemic for several days 3. acute blood loss anemia 2nd to #1 above - s/p 2 units PRBCs this admission. ferrous sulfate BID. Hb 8.5 from 8.1 the day before, stable for several days, no further signs of bleeding 4. severe dementia - baseline. needs to return to SNF 5. runs of SVT - appreciate cardiology consult. Cont amiodarone 200mg BID x 1 week then 200mg daily indefinitely 6. constipation - resolved. continue Bowel regimen on discharge 7. mild blood per rectum - has not recurred. Was likely from irritation in setting of severe constipation. 8. DVT proph - lovenox. 9. hyperthyroidism - most recent TSH compensated; cont methimazole. 10. h/o stroke - presumed based on aggrenox use - continue latter. 11. vitamin D def - ergocalciferol 60091 units twice weekly x 8 weeks. 12. a. fib with RVR - history of such in 2013. Spontaneously converted back to NSR overnight on 06/05 Will increase amiodarone to 200mg BID x 7 days, then 200mg once daily thereafter. 13. cellulitis, LLE? orthopedics reviewed, did not feel this is cellulitis, just erythema from surgery, antibiotics stopped. 14. skin tear, left hand, s/p suture repair - sutures intact, no superimposed infection. Sutures placed by Dr. Thomas on 07/04. Sutures should be removed on or after 07/11 15. hypoxia during sleep - could have central apnea from her dementia. Continue NC O2 with sleep. 16. hypokalemia - resolved d/c to [facility] Total Time Spent: Greater than 30 minutes This includes examination of the patient, discharge planning, medication reconciliation, and communication with other providers. Discharge Instructions Please refer to the electronic Patient Visit Report (Discharge Instructions) for additional information. Follow-Up Dr. Muñoz, [facility], 07/16 physician at [facility] this week Additional Copies To Lester Lemos; Agustin Muñoz M.D.
== END 2017-07-09 14:10 | DRG 480 ==
LOC: EDBD 22:50 → C.EDB 22:52 → C.MSN 07-01 00:18 → ENRESERV 07-01 01:06 → C.2T 07-02 19:41 → ENRESERV 07-08 11:02 → C.MSN 07-08 12:53
PROVIDERS: ADMIT Hospitalist; ATTEND Internal Medicine
PROC: 0QS906Z Reposition Left Femoral Shaft with Intramedullary Internal Fixation Device, Open Approach (ICD-10-PCS; principal; 2017-07-02 12:30)
PROC: 0HQGXZZ Repair Left Hand Skin, External Approach (ICD-10-PCS; 2017-07-04)
DX: M84.452A Pathological fracture, left femur, initial encounter for fracture (principal); I50.31 Acute diastolic (congestive) heart failure; I47.1 Supraventricular tachycardia; I48.92 Unspecified atrial flutter; D62 Acute posthemorrhagic anemia; E05.90 Thyrotoxicosis, unspecified without thyrotoxic crisis or storm; F32.9 Major depressive disorder, single episode, unspecified; G47.00 Insomnia, unspecified; F03.90 Unspecified dementia, unspecified severity, without behavioral disturbance, psychotic disturbance, mood disturbance, and anxiety; I48.0 Paroxysmal atrial fibrillation; E11.9 Type 2 diabetes mellitus without complications; E78.5 Hyperlipidemia, unspecified; S61.402A Unspecified open wound of left hand, initial encounter; K59.00 Constipation, unspecified; Z86.73 Personal history of transient ischemic attack (TIA), and cerebral infarction without residual deficits; E56.9 Vitamin deficiency, unspecified; G47.34 Idiopathic sleep related nonobstructive alveolar hypoventilation; E87.6 Hypokalemia

== ENCOUNTER → 2017-07-17 | Outpatient (CLI) | payer BC, OTHER ==
[~2017-07-17] MED LIST changes: -ACET325T96 PO; -AMIO200T7 PO; +CRD200 PO; -LEVO1TAB35 PO; +LVNIS40 SQ; +MRLP17 PO; -NUTR-977 PO; +RXC5 PO; -SRQ25 PO
== END | disposition home or self-care (01) ==
LOC: C.RDSM 07:42
PROVIDERS: ATTEND Physical Medicine & Rehabilitation Sports Medicine
DX: S72.92XA Unspecified fracture of left femur, initial encounter for closed fracture (principal); X58.XXXA Exposure to other specified factors, initial encounter

== ENCOUNTER → 2017-07-22 | Outpatient (CLI) | payer SELFPAY ==
[2017-07-22 09:09] LABS: HEMATOCRIT 33.4 % (37-47); MEAN CORPUSCULAR HEMOGLOBIN 32.1 pg (25-34); MEAN CORPUSCULAR HGB CONC 30.2 g/dl (32-36); MEAN PLATELET VOLUME 9.3 fL (7.4-10.4); PLATELET COUNT 328 K/uL (130-400); RED BLOOD COUNT 3.15 M/uL (4.2-5.4)
[2017-07-22 09:19] LABS: BLOOD UREA NITROGEN 14 mg/dl (7-18); BUN/CREATININE RATIO 17.1 (10-20); CALCIUM 8.3 mg/dl (8.5-10.1); CARBON DIOXIDE 27 mmol/L (21-32); CHLORIDE 106 mmol/L (98-107); CREATININE 0.79 mg/dl (0.60-1.20); GLUCOSE 102 mg/dl (70-99); POTASSIUM 4.1 mmol/L (3.5-5.1); SODIUM 140 mmol/L (136-145)
== END ==
LOC: C.LABFOXAN 08:44
PROVIDERS: ATTEND Internal Medicine Hospice and Palliative Medicine
DX: D64.9 Anemia, unspecified (principal)

== ENCOUNTER → 2017-07-29 | Outpatient (CLI) | payer OTHER, BC ==
[2017-07-29 09:01] LABS: HEMATOCRIT 38.6 % (37-47); HEMOGLOBIN 11.6 g/dL (12.0-16.0); MEAN CORPUSCULAR HEMOGLOBIN 31.9 pg (25-34); MEAN CORPUSCULAR HGB CONC 30.1 g/dl (32-36); MEAN PLATELET VOLUME 9.8 fL (7.4-10.4); PLATELET COUNT 235 K/uL (130-400); RED CELL DISTRIBUTION WIDTH CV 15.5 % (11.5-14.5); RED CELL DISTRIBUTION WIDTH SD 61.7 fL (36.4-46.3); WHITE BLOOD COUNT 7.04 K/uL (4.8-10.8)
[2017-07-29 09:07] LABS: BLOOD UREA NITROGEN 18 mg/dl (7-18); CALCIUM 8.7 mg/dl (8.5-10.1); CARBON DIOXIDE 29 mmol/L (21-32); CREATININE 0.76 mg/dl (0.60-1.20); GLUCOSE 86 mg/dl (70-99); POTASSIUM 4.3 mmol/L (3.5-5.1); SODIUM 141 mmol/L (136-145)
== END ==
LOC: C.LABFOXAN 08:10 → EDSTATUS 08-29 11:05
PROVIDERS: ATTEND Internal Medicine
DX: D64.9 Anemia, unspecified (principal)

== ENCOUNTER → 2017-08-02 | Outpatient (CLI) | payer OTHER, BC ==
[2017-08-02 09:43] LABS: HEMATOCRIT 36.8 % (37-47); HEMOGLOBIN 11.4 g/dL (12.0-16.0); MEAN CELL VOLUME 106.1 fL (80-100); MEAN CORPUSCULAR HEMOGLOBIN 32.9 pg (25-34); PLATELET COUNT 199 K/uL (130-400); RED CELL DISTRIBUTION WIDTH CV 15.8 % (11.5-14.5); RED CELL DISTRIBUTION WIDTH SD 61.3 fL (36.4-46.3); WHITE BLOOD COUNT 6.89 K/uL (4.8-10.8)
== END ==
LOC: C.LABFOXAN 09:12 → EDSTATUS 08-29 11:06
PROVIDERS: ATTEND Internal Medicine Hospice and Palliative Medicine
DX: D50.9 Iron deficiency anemia, unspecified (principal)

== ENCOUNTER → 2017-08-05 | Outpatient (CLI) | payer OTHER, BC ==
[2017-08-05 09:30] LABS: HEMOGLOBIN 11.4 g/dL (12.0-16.0); MEAN CORPUSCULAR HEMOGLOBIN 32.7 pg (25-34); MEAN CORPUSCULAR HGB CONC 30.8 g/dl (32-36); MEAN PLATELET VOLUME 10.3 fL (7.4-10.4); PLATELET COUNT 208 K/uL (130-400); RED CELL DISTRIBUTION WIDTH CV 15.8 % (11.5-14.5); RED CELL DISTRIBUTION WIDTH SD 61.1 fL (36.4-46.3); WHITE BLOOD COUNT 7.07 K/uL (4.8-10.8)
[2017-08-05 09:39] LABS: BLOOD UREA NITROGEN 19 mg/dl (7-18); CALCIUM 8.6 mg/dl (8.5-10.1); CARBON DIOXIDE 28 mmol/L (21-32); CREATININE 0.75 mg/dl (0.60-1.20); GLUCOSE 104 mg/dl (70-99); POTASSIUM 3.9 mmol/L (3.5-5.1); SODIUM 141 mmol/L (136-145)
== END ==
LOC: C.LABFOXAN 08:32 → EDSTATUS 08-29 11:08
PROVIDERS: ATTEND Internal Medicine Hospice and Palliative Medicine
DX: D64.9 Anemia, unspecified (principal)

== ENCOUNTER → 2017-08-12 | Outpatient (CLI) | payer OTHER, BC ==
[2017-08-12 09:54] LABS: HEMATOCRIT 38.2 % (37-47); HEMOGLOBIN 12.1 g/dL (12.0-16.0); MEAN CELL VOLUME 105.8 fL (80-100); MEAN CORPUSCULAR HEMOGLOBIN 33.5 pg (25-34); MEAN CORPUSCULAR HGB CONC 31.7 g/dl (32-36); MEAN PLATELET VOLUME 10.3 fL (7.4-10.4); PLATELET COUNT 217 K/uL (130-400); RED CELL DISTRIBUTION WIDTH CV 15.1 % (11.5-14.5); RED CELL DISTRIBUTION WIDTH SD 59.1 fL (36.4-46.3); WHITE BLOOD COUNT 7.66 K/uL (4.8-10.8)
[2017-08-12 10:03] LABS: BLOOD UREA NITROGEN 20 mg/dl (7-18); CALCIUM 8.6 mg/dl (8.5-10.1); CARBON DIOXIDE 27 mmol/L (21-32); CREATININE 0.73 mg/dl (0.60-1.20); GLUCOSE 89 mg/dl (70-99); POTASSIUM 4.3 mmol/L (3.5-5.1); SODIUM 142 mmol/L (136-145)
== END ==
LOC: C.LABFOXAN 09:19 → EDSTATUS 08-29 11:10
PROVIDERS: ATTEND Nurse Practitioner Family
DX: D50.0 Iron deficiency anemia secondary to blood loss (chronic) (principal)

== ENCOUNTER → 2017-08-16 | Outpatient (CLI) | payer OTHER, BC | LOC: C.RDSM 11:30 | PROVIDERS: ATTEND Physical Medicine & Rehabilitation Sports Medicine | DX: S72.92XA Unspecified fracture of left femur, initial encounter for closed fracture (principal); X58.XXXA Exposure to other specified factors, initial encounter ==

== ENCOUNTER → 2017-08-20 | Outpatient (CLI) | payer OTHER, BC ==
[2017-08-20 08:47] LABS: HEMATOCRIT 37.1 % (37-47); MEAN CELL VOLUME 104.8 fL (80-100); MEAN CORPUSCULAR HEMOGLOBIN 33.3 pg (25-34); MEAN CORPUSCULAR HGB CONC 31.8 g/dl (32-36); MEAN PLATELET VOLUME 9.9 fL (7.4-10.4); PLATELET COUNT 218 K/uL (130-400); RED BLOOD COUNT 3.54 M/uL (4.2-5.4); WHITE BLOOD COUNT 7.82 K/uL (4.8-10.8)
[2017-08-20 08:58] LABS: BLOOD UREA NITROGEN 19 mg/dl (7-18); BUN/CREATININE RATIO 25.5 (10-20); CALCIUM 8.4 mg/dl (8.5-10.1); CARBON DIOXIDE 27 mmol/L (21-32); CHLORIDE 106 mmol/L (98-107); CREATININE 0.74 mg/dl (0.60-1.20); GLUCOSE 93 mg/dl (70-99); POTASSIUM 4.1 mmol/L (3.5-5.1); SODIUM 140 mmol/L (136-145)
== END | disposition home or self-care (01) ==
LOC: C.LABFOXAN 08:20
PROVIDERS: ATTEND Internal Medicine
DX: D50.0 Iron deficiency anemia secondary to blood loss (chronic) (principal)

== ENCOUNTER → 2017-08-27 | Outpatient (CLI) | payer OTHER, BC ==
--- NOTE | 2017-09-05 08:08 | CODING QUERY MEDICAL NECESSITY ---
CQSUPPORTING DIAGNOSIS NEEDED A supporting diagnosis is required for the test/procedure performed on this patient in order for us to be reimbursed by the patient's insurance. Please provide a supporting diagnosis for the following test/procedure listed below next to the test name along with your signature. *If there is no additional diagnosis for this patient that would support the following test/procedure please document that below next to the test/procedure. Test(s)/Procedure(s) that require a supporting diagnosis: DOS 08/27/17 VITAMIN D TEST Provider Signature: Date: Thank you Nessa Cabezas Health Information Management Once completed, please kindly fax back to [phone] For questions please call [phone]
== END | disposition home or self-care (01) ==
LOC: C.LABSPEC 09:12
PROVIDERS: ATTEND Physical Medicine & Rehabilitation Sports Medicine
DX: M24.659 Ankylosis, unspecified hip (principal); R26.2 Difficulty in walking, not elsewhere classified; S72.92XA Unspecified fracture of left femur, initial encounter for closed fracture; X58.XXXA Exposure to other specified factors, initial encounter

== ENCOUNTER → 2017-09-06 | Outpatient (CLI) | payer OTHER, BC ==
[2017-09-06 08:19] LABS: BASO % 0.6 %; BASO ABS # 0.04 K/uL (0-0.2); EOS % 3.6 %; EOS ABS # 0.26 K/uL (0-0.5); HEMATOCRIT 38.5 % (37-47); HEMOGLOBIN 12.1 g/dL (12.0-16.0); IG# 0.05 K/uL (0.00-0.02); LYMPH ABS # 2.66 K/uL (1.2-3.4); MEAN CELL VOLUME 103.5 fL (80-100); MEAN CORPUSCULAR HEMOGLOBIN 32.5 pg (25-34); MEAN CORPUSCULAR HGB CONC 31.4 g/dl (32-36); MEAN PLATELET VOLUME 9.9 fL (7.4-10.4); NEUT % 51.1 %; NEUT ABS # 3.68 K/uL (1.4-6.5); PLATELET COUNT 219 K/uL (130-400); RED CELL DISTRIBUTION WIDTH CV 14.1 % (11.5-14.5); RED CELL DISTRIBUTION WIDTH SD 53.6 fL (36.4-46.3); WHITE BLOOD COUNT 7.19 K/uL (4.8-10.8)
[2017-09-06 08:28] LABS: ALBUMIN 2.9 gm/dl (3.4-5.0); ALT/SGPT 18 U/L (12-78); BLOOD UREA NITROGEN 20 mg/dl (7-18); CALCIUM 8.6 mg/dl (8.5-10.1); CARBON DIOXIDE 29 mmol/L (21-32); CREATININE 0.69 mg/dl (0.60-1.20); GLUCOSE 99 mg/dl (70-99); POTASSIUM 4.2 mmol/L (3.5-5.1); SODIUM 141 mmol/L (136-145)
[2017-09-06 08:39] LABS: ALKALINE PHOSPHATASE 80 U/L (45-117); AST/SGOT 9 U/L (15-37); TOTAL PROTEIN 6.2 gm/dl (6.4-8.2)
[2017-09-06 08:55] LABS: THYROXINE (T4) 6.1 mcg/dl (4.5-10.9)
== END | disposition home or self-care (01) ==
LOC: C.LABFOXAN 07:51
PROVIDERS: ATTEND Internal Medicine
DX: E05.90 Thyrotoxicosis, unspecified without thyrotoxic crisis or storm (principal)

== ENCOUNTER → 2017-09-25 | Outpatient (CLI) | payer OTHER, BC | END | disposition home or self-care (01) | LOC: C.LABFOXAC 08:26 | PROVIDERS: ATTEND Physician Assistant | DX: M24.659 Ankylosis, unspecified hip (principal); R26.2 Difficulty in walking, not elsewhere classified; S72.92XA Unspecified fracture of left femur, initial encounter for closed fracture; X58.XXXA Exposure to other specified factors, initial encounter; E55.9 Vitamin D deficiency, unspecified ==

== ENCOUNTER → 2017-10-01 | Outpatient (CLI) | payer OTHER, BC | END | disposition home or self-care (01) | LOC: C.RDSM 14:35 | PROVIDERS: ATTEND Physical Medicine & Rehabilitation Sports Medicine | DX: M24.659 Ankylosis, unspecified hip (principal) ==

== ENCOUNTER → 2017-10-30 | Outpatient (CLI) | payer OTHER, BC ==
[2017-10-30 08:20] LABS: BASO % 0.4 %; BASO ABS # 0.03 K/uL (0-0.2); EOS ABS # 0.21 K/uL (0-0.5); HEMATOCRIT 40.1 % (37-47); HEMOGLOBIN 12.7 g/dL (12.0-16.0); IG# 0.05 K/uL (0.00-0.02); LYMPH % 44.9 %; MEAN CELL VOLUME 102.6 fL (80-100); MEAN CORPUSCULAR HEMOGLOBIN 32.5 pg (25-34); MEAN CORPUSCULAR HGB CONC 31.7 g/dl (32-36); MEAN PLATELET VOLUME 9.8 fL (7.4-10.4); MONO % 9.4 %; MONO ABS # 0.65 K/uL (0.11-0.59); NEUT % 41.6 %; NEUT ABS # 2.87 K/uL (1.4-6.5); PLATELET COUNT 201 K/uL (130-400); RED CELL DISTRIBUTION WIDTH CV 13.6 % (11.5-14.5); RED CELL DISTRIBUTION WIDTH SD 50.8 fL (36.4-46.3); WHITE BLOOD COUNT 6.91 K/uL (4.8-10.8)
--- NOTE | 2017-11-22 10:12 | CODING QUERY NO DIAGNOSIS ---
TREATMENT RENDERED WITHOUT A DIAGNOSIS : 1930 To promote full compliance with coding requirements relating to patient care, physician participation is requested in all cases of rubber tester uncertainty. Please assist us with providing a diagnosis/symptom for the test(s) below: A diagnosis/symptom was not documented on your Order. A valid diagnosis/symptom is required to bill all insurances. Please remember that we are unable to code a diagnosis of rule out, probable, possible, questionable, or suspected. Tests that require a diagnosis: DOS: 10/30/17 * CBC WITH AUTO DIFFER DIAGNOSIS: Provider Signature: Date: Thank you Ondina Bright Health Information Management Once completed, please kindly fax back to [phone] For questions please call [phone]
== END | disposition home or self-care (01) ==
LOC: C.LABFOXAN 07:58
PROVIDERS: ATTEND Internal Medicine
DX: Z79.899 Other long term (current) drug therapy (principal)

== ENCOUNTER → 2017-12-17 | Outpatient (CLI) | payer OTHER, BC | END | disposition home or self-care (01) | LOC: C.RDSM 16:36 | PROVIDERS: ATTEND Physical Medicine & Rehabilitation Sports Medicine | DX: S72.90XA Unspecified fracture of unspecified femur, initial encounter for closed fracture (principal); X58.XXXA Exposure to other specified factors, initial encounter ==